=== PATIENT | female | born 1975 | race Caucasian/White ===

== ENCOUNTER 2020-03-21 07:17 | Outpatient (REF) | payer SELFPAY ==
[2020-03-21 07:36] LABS: COVID-19 Test Negative (Negative)
== END 2020-03-21 07:18 | disposition home or self-care (01) ==
LOC: HO.LAB 07:17
PROVIDERS: Visit Provider Internal Medicine
DX: Z20.828 Contact with and (suspected) exposure to other viral communicable diseases (principal)
CPT/HCPCS: 87635

== ENCOUNTER → 2020-04-11 10:33 | Outpatient (BNVA) | payer OTHER, SELFPAY | PROVIDERS: Visit Provider Physician Assistant Medical | DX: S61.512A Laceration without foreign body of left wrist, initial encounter (principal); W27.8XXA Contact with other nonpowered hand tool, initial encounter | CPT/HCPCS: 12001; 90715; 99203 ==

== ENCOUNTER → 2020-04-12 15:42 | Outpatient (BNVA) | payer OTHER, SELFPAY | PROVIDERS: Visit Provider Internal Medicine | DX: S61.512A Laceration without foreign body of left wrist, initial encounter (principal); W26.8XXA Contact with other sharp object(s), not elsewhere classified, initial encounter | CPT/HCPCS: 99214 ==

== ENCOUNTER 2020-04-16 06:23 | Outpatient (REF) | payer OTHER, SELFPAY | END 2020-04-16 06:24 | disposition home or self-care (01) | LOC: HO.LAB 06:23 | PROVIDERS: Visit Provider Internal Medicine | DX: Z20.828 Contact with and (suspected) exposure to other viral communicable diseases (principal) | CPT/HCPCS: C9803; U0003 ==

== ENCOUNTER → 2020-04-19 09:15 | Outpatient (BNVA) | payer OTHER, SELFPAY | PROVIDERS: Visit Provider Internal Medicine | DX: S61.512A Laceration without foreign body of left wrist, initial encounter (principal); X58.XXXA Exposure to other specified factors, initial encounter | CPT/HCPCS: 99212; 99213 ==

== ENCOUNTER 2022-12-25 08:18 | Emergency (ER) | payer SELFPAY ==
[2022-12-25 08:30] VITALS: BP 122/80; BP 135/78; PULSE 86; PULSE 96; RESP 18; TEMP 35.7; O2SAT 94; O2SAT 95; BMI 21.7
[2022-12-25 11:07] VITALS: BP 102/67; PULSE 101; RESP 18; TEMP 35.6; O2SAT 94
--- NOTE | 2022-12-25 13:17 | ED_ITS ---
HPI - General Adult General Chief complaint: ETOH/Substance Use Stated complaint: ETOH per EMS Time Seen by Provider: 12/25/22 08:25 Source: patient Mode of arrival: ambulatory Limitations: no limitations History of Present Illness HPI narrative: 47 ylodl female presents to the ED for alcohol on breath. patinet denies drinking, but there is alcohol on breath. Patient denies any trauma. Patient does not want detox. 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 Related Data Allergies Allergy/AdvReac Type Severity Reaction Status Date / Time No Known Allergies Allergy Unverified 02/22/20 14:57 [No Known Allergies*] Review of Systems Review of Systems: Alcohol on breath Yes all other systems are reviewed and are negative [facility] Social History Social History Alcohol intake: current Alcohol type: beer Smoked in Last 30 Days: No Use of substances other than those prescribed or required for medical reasons: No Advance Directives: No Advance Directives Information Provided: No Physical Exam ED Vital Signs: Vital Signs - 24 hr 12/25/22 08:30 12/25/22 11:07 Temperature 96.2 F L 96.0 F L Pulse Rate 86 101 H Respiratory Rate 18 18 Blood Pressure 135/78 102/67 Pulse Oximetry 94 94 Oxygen Delivery Method Room Air Room Air BMI result Body Mass Index 21.7 Const General: cooperative, healthy appearing, comfortable, no acute distress, well developed, alert, awake and Physically active Orientation/consciousness: oriented to person, oriented to place, oriented to time and patient oriented x3 HENMT Head: Yes normal to inspection, Yes No palpable skull fracture present, Yes normocephalic, Yes atraumatic and No abrasion Ears: hearing grossly normal bilaterally, external ears normal, TM's normal bilaterally, TM normal on the right, TM normal on the left, EAC's normal, mastoids normal and no periauricular adenopathy Throat: Yes posterior oropharynx normal, Yes tonsils normal and Yes uvula midline Eyes General: appearance normal, both eyes and all related structures Neck Neck: Yes normal visual inspection, Yes full ROM, Yes no lymphadenopathy, Yes no meningeal signs, Yes trachea midline, Yes supple, No anterior neck swelling and No tender Chest Chest palpation & inspection: normal inspection of the chest and normal palpation of entire chest wall Resp Effort & Inspection: normal respiratory effort and able to speak in complete sentences Auscultation: clear to auscultation bilaterally Cardio Jugular venous distension: no JVD Heart sounds: S1 normal heart sound present and S2 normal heart sound present GI Inspection: Yes normal to inspection and No abdominal wall ecchymosis Palpation (GI): Soft to palpation, not firm, nontender, no guarding and not rigid General: No CVA tenderness and Yes no CVA tenderness Back/Spine/Pelvis Back: no CVA tenderness, No CVA tenderness and No back tenderness Skin General skin exam: no rashes or lesions noted and elasticity normal Neuro General: oriented to person, oriented to place, oriented to time, patient oriented x3, gait normal, tone normal, moves all extremities, Normal light touch and pain sensation, no meningeal signs, no focal motor deficits, CN's II-XI intact bilaterally and normal sensation to monofilament Extrem General: Yes normal to inspection and Yes full ROM Psych Appearance: grossly normal, well kempt and not disheveled Medical Decision Making Medical Decision Making MDM Narrative: 47-year-old female history of alcohol abuse presents to the ED for drinking while at work. Patient denies trauma. Patient evaluated throughout ED visit. Patient is alert oriented x3. Patient does not want detox. Patient O2 saturation before discharge 96%. Differential Diagnosis Differential Diagnoses: The differential diagnosis associated with the presentation includes (Alcohol withdrawal. Alcohol abuse. susbtance abuse. DT) Admission/Observation Consideration of admission/observation: Escalation of care including admission/observation considered Independent Historian Clinical information obtained from an independent historian. History obtained from or confirmed by: EMS and Other Chronic Conditions Patient?s care impacted by: Other (Alcohol abuse) Discharge Plan Discharge Clinical Impression: Alcohol abuse Patient Disposition: Home, Self-Care Instructions: Abuse of Alcohol (DC) Additional Instructions: Please follow-up to primary care provider. Return to the ED immediately for any tremors, chest pain, shortness of breath, abdominal pain, headache, nausea, vomiting, altered mental status, any psych ideation, or any other concerning symptoms. Interventions: ED Discharge Assessment Last Done: 12/25/22 14:52 Discharge Date/Time: 12/25/22 14:53 Print Language: Surinamese
[2022-12-25 13:53] VITALS: BP 104/68; PULSE 83; RESP 16; TEMP 35.6; O2SAT 94
--- NOTE | 2022-12-25 14:52 | PC.NURSE ---
reviewed discharge paper work with pt. pt called a CAB for a ride home.
== END 2022-12-25 14:53 | disposition home or self-care (01) ==
PROVIDERS: Emergency Provider Emergency Medicine
DX: F10.10 Alcohol abuse, uncomplicated (principal); Y90.9 Presence of alcohol in blood, level not specified
CPT/HCPCS: 99284

== ENCOUNTER 2024-06-08 18:30 | Inpatient (IN) | payer MEDICAID, SELFPAY ==
--- NOTE | ~2024-06-08 | XR_ITS ---
CLINICAL HISTORY: trach aspiration 1 view chest x-ray Comparison: None Findings: Central perihilar hazy opacities in the right greater than left lung. No effusion or pneumothorax. Tracheostomy tube in expected position overlying the mid trachea. Moderate cardiomegaly. No acute fracture. IMPRESSION: 1. Central hazy perihilar opacities in the right greater than left lung. These likely correspond with ground-glass opacity seen on CT yesterday. Differential includes pulmonary edema, infection (possibly atypical) or aspiration. This document has been electronically signed by: Mak Puri MD on 06/09/2024 19:06:38
--- NOTE | ~2024-06-08 | CT_ITS ---
CLINICAL HISTORY: gi bleed, etoh CT abdomen and pelvis with and without contrast Comparison: None Findings: Ground-glass opacity in the central right lung base with a centrilobular appearance. The spleen is normal in size. Adrenal glands, kidneys, pancreas are unremarkable. Diffuse gallbladder wall thickening, which may be related to underlying liver disease. There is a stone within the gallbladder. No bowel obstruction, pneumoperitoneum, or pneumatosis. There is mild wall thickening of the right colon which may be hepatic colopathy. Diffusely lobulated liver consistent with cirrhosis. Gastroesophageal, perigastric and gastrohepatic varices are present. Varices extend into the gastric lumen.Recanalization of the umbilical vein present. Pelvic contents unremarkable. Normal appendix. Xzly-ut-yvglmuld ascites. No acute fracture. Body wall anasarca. IMPRESSION: Right colon wall thickening, which may be hepatic colopathy. Hepatic cirrhosis with varices and portal hypertension. Small to moderate ascites. Ground-glass opacity in the right lung base, which could be asymmetric pulmonary edema or atypical infection. Diffuse wall thickening of the gallbladder, with cholelithiasis. Wall thickening is a nonspecific finding which can be related to underlying liver disease. This document has been electronically signed by: Mak Puri MD on 06/09/2024 00:52:56
[2024-06-08 18:32] VITALS: BP 115/97; PULSE 122; RESP 19; TEMP 36.8; O2SAT 98; BMI 28.1
--- NOTE | 2024-06-08 18:37 | ED_ITS ---
HPI - General Adult General Chief complaint: General Medical Stated complaint: sore throat, vomiting blood Time Seen by Provider: 06/08/24 19:38 Source: patient Mode of arrival: ambulatory Limitations: no limitations History of Present Illness ED Provider: Dr. Lashawn Garner HPI narrative: Patient comes to the emergency room complaining of sore throat for several weeks. However, patient also complaining that she vomited blood today. Patient denies abdominal pain. Patient states that her knowledge she has never been diagnosed with cirrhosis. Patient admits that she drinks beers daily. It was noted that patient is icteric, patient is significant other states that she has been like this for over 2 months. Patient also complaining of chronic fatigue, shortness of breath with minimal Related Data Allergies Allergy/AdvReac Type Severity Reaction Status Date / Time No Known Allergies Allergy Verified 06/08/24 18:37 [No Known Allergies*] Review of Systems 2 Review of Systems: Constitutional : No Weight loss, No Fever, No Chills, No Night Sweats, No Fatigue, No Malaise ENT/Mouth : No Hearing loss, No Ear Pain, No Nasal Congestion, No Sinus Pain, No Hoarseness, complaining of sore throat, No Rhinorrhea, No Swallowing Difficulty Eyes: No Eye Pain, No Swelling, No Redness, No Foreign Body, No Discharge, No Vision Changes Cardiovascular : No Chest Pain, No SOB, No Dyspnea on Exertion, No Orthopnea, No Edema, No Palpitations Respiratory : No Cough, No Sputum, No Wheezing, No Smoke Exposure, No Dyspnea Gastrointestinal : Complaining of nausea and vomiting blood, No Diarrhea, No Constipation, No abdominal Pain, denies hematochezia or melena Genitourinary : no irregular bleeding, No Dysuria, No Urinary Frequency, No Hematuria, No Urinary Incontinence, No Urgency, No Flank Pain, No Urinary Flow Changes, No Hesitancy Musculoskeletal : No joint pain, No Myalgias, No Joint Swelling Skin : No Skin Lesions, No rash Neuro : No Weakness, No Numbness, No Paresthesias, No Loss of Consciousness, No Dizziness, No Headache Psych : No Anxiety/Panic, No Depression, No SI/HI/AH/VH, No Social Issues, Heme/Lymph: No Bruising, No Bleeding,No Lymphadenopathy Endocrine : No Polyuria, No Polydipsia, No Temperature Intolerance [facility] Past Medical History Medical History Alcohol abuse Social History Social History Alcohol intake: current Alcohol intake frequency: 3 or more drinks per day Alcohol type: beer Patient Tobacco Use Status: Former Tobacco user Smoked in Last 30 Days: No Use of substances other than those prescribed or required for medical reasons: No Advance Directives: No Advance Directives Information Provided: No Do you have a plan to hurt others: No Plan Nutrition Risks: No Nutritional Risk Patient : Yes Physical Exam ED Vital Signs: Vital Signs - 24 hr 06/08/24 18:32 06/08/24 20:06 06/08/24 21:38 Temperature 98.3 F 98.4 F 98.3 F Pulse Rate 122 H 107 H 97 Respiratory Rate 19 20 31 H Blood Pressure 115/97 H 109/63 99/55 L Pulse Oximetry 98 99 97 Oxygen Delivery Method Room Air Room Air Room Air 06/08/24 21:44 06/08/24 22:03 06/09/24 00:44 Temperature 98.3 F 98.6 F 98.1 F Pulse Rate 97 103 H 97 Respiratory Rate 15 15 14 Blood Pressure 95/55 L 115/67 122/81 Pulse Oximetry 97 Oxygen Delivery Method Room Air 06/09/24 00:44 06/09/24 01:22 06/09/24 01:39 Temperature 98.5 F 98 F 98.6 F Pulse Rate 99 100 96 Respiratory Rate 15 18 20 Blood Pressure 106/79 148/91 H 129/75 Pulse Oximetry Oxygen Delivery Method 06/09/24 01:40 Temperature 98.6 F Pulse Rate 96 Respiratory Rate 20 Blood Pressure 129/75 Pulse Oximetry Oxygen Delivery Method BMI result Body Mass Index 28.1 Const Other: Appearance: Alert. Oriented X3. No acute distress. Eyes: Pupils equal, round and reactive to light. Icteric sclerae ENT: Pharynx normal. Neck: Normal inspection. Neck supple. No lymph nodes noted. No crepitus CVS: Normal heart rate and rhythm. Pulses normal. Normal S1 and S2 Respiratory: No respiratory distress. Breath sounds normal. No Wheezing. No rales Abdomen: Soft, nondistended, palpable liver edge in the right lower quadrant, no rebound or guarding Skin: Skin warm and dry. Diffusely jaundiced skin color. Normal skin turgor. Extremities: No lower extremity edema. No Lacerations. No Rash Neuro: Oriented X 3. No motor deficit. No sensory deficit. Moving all extremities. No slurred speech. CN 2 through 12 grossly intact Psych: calm, cooperative, normal affect Course Course Course Narrative: RME: 48-year-old female presents to ED for vomiting blood NSAIDs sore throat 4 weeks. Patient has icterus eyes and jaundice skin. Dry blood in oral cavity. Patient states history of alcohol daily drinking. Due to these physical findings speak to charge was ever any to bring patient to the ED immediately. Labs ordered. Abdomen distended. Medications Administered Generic Name Dose Route Start Last Admin Trade Name Freq PRN Reason Stop Dose Admin Octreotide Acetate 500 mcg/ 501 mls @ 50.1 mls/hr 06/08/24 20:30 06/09/24 06:24 Sodium Chloride IVCONT 50 mcg/hr .Q10H ANNEMARIE 50.1 mls/hr Administration 50 MCG/HR Pantoprazole Sodium 40 mg 06/09/24 06:30 06/09/24 06:24 Pantoprazole Sodium 40 Mg/10 Ml Vial IVPUSH 40 mg BID@0630,1630 ANNEMARIE Administration Discontinued Medications Generic Name Dose Route Start Last Admin Trade Name Freq PRN Reason Stop Dose Admin Ceftriaxone Sodium 1 gm 06/08/24 20:22 06/08/24 20:48 Ceftriaxone Sodium 1 Gm Vial IVPUSH 06/08/24 20:23 1 gm ONCE ONE Administration Phytonadione 10 mg/ Sodium 51 mls @ 51 mls/hr 06/08/24 20:45 06/09/24 00:37 Chloride IV 06/08/24 21:44 Infused ONCE ONE Infusion Thiamine HCl 200 mg/ Sodium 102 mls @ 204 mls/hr 06/09/24 02:18 06/09/24 05:35 Chloride IV 06/09/24 02:47 Infused ONCE ONE Infusion Iohexol 85 ml 06/09/24 00:04 06/09/24 00:04 Iohexol 350 Mg/Ml 100 Ml Infus..Btl IV 06/09/24 00:05 85 ml ONCE ONE Administration Octreotide Acetate 50 mcg 06/08/24 20:22 06/08/24 20:48 Octreotide Acetate 100 Mcg/Ml Ampul IVPUSH 06/08/24 20:23 50 mcg ONCE ONE Administration Ondansetron HCl 4 mg 06/08/24 20:27 06/08/24 20:48 Ondansetron Hcl 4 Mg/2 Ml Vial IVPUSH 06/08/24 20:28 4 mg ONCE ONE Administration Pantoprazole Sodium 40 mg 06/08/24 19:07 06/08/24 19:53 Pantoprazole Sodium 40 Mg/10 Ml Vial IVPUSH 06/08/24 19:08 40 mg ONCE ONE Administration Pantoprazole Sodium 40 mg 06/08/24 20:22 06/08/24 20:48 Pantoprazole Sodium 40 Mg/10 Ml Vial IVPUSH 06/08/24 20:23 40 mg ONCE ONE Administration Phenobarbital Sodium 164 mg 06/08/24 22:30 06/09/24 00:23 Phenobarbital Sodium 130 Mg/Ml Im Once IM 06/08/24 22:31 164 mg ONCE ONE Administration Protocol Phenobarbital Sodium 123 mg 06/09/24 00:30 06/09/24 05:30 Phenobarbital Sodium 130 Mg/Ml Vial Im Q3hx2 IM 06/09/24 03:31 123 mg Q3H ANNEMARIE Administration Protocol Medical Decision Making Medical Decision Making MDM Narrative: Patient is anemic. Patient's hemoglobin is 5.8, hematocrit 20.6 I discussed with the patient that this is likely the cause of patient's anemic symptoms. Anemia likely secondary from variceal bleeding. At this time, patient has no active vomiting. Vitals stable, blood pressure 115/97 I discussed with the patient the risks versus benefits of a blood transfusion, patient agreeable to proceed. Consent signed Viscous with the patient that tomorrow she will likely need an endoscopy and a colonoscopy Gastric occult blood is positive CT scan shows cirrhosis. Patient received blood transfusion, Protonix, octreotide push and drip and vitamin K. Patient's INR is significantly elevated 3.0, patient not on blood thinners ETOH level positive. Patient admits to drinking alcohol. Patient denies to drug abuse. Patient never been diagnosed with hepatitis I discussed the patient with Dr. Lyman, patient being admitted Differential Diagnosis Differential Diagnoses: The differential diagnosis associated with the presentation includes (Hepatitis, ascending, changes, choledocholithiasis, there were failure, cirrhosis) Admission/Observation Consideration of admission/observation: Escalation of care including admission/observation considered Consult Healthcare Provider Management of the patient was discussed with: Hospitalist Lab Data [facility] Lab Attestation statement: I reviewed the patient's lab results. 06/09/24 04:15 06/09/24 04:15 Labs: Lab Results 06/08/24 06/08/24 06/08/24 Range/Units 19:20 20:41 21:42 WBC 16.0 H (4.8-10.8) X10*3/uL RBC 2.37 L (4.20-5.50) X10*6/uL Hgb 5.8 L* (12.0-16.0) g/dl Hct 20.6 L* (37.0-47.0) % MCV 86.9 (80.0-98.0) fL MCH 24.5 L (27.0-33.0) pg MCHC 28.2 L (31.0-35.0) g/dl RDW 23.0 H (11.0-16.0) % Plt Count 59 L (160-400) X10*3/uL MPV 9.9 (9.4-12.3) fL Immature Gran % (Auto) 0.5 H (0.0-0.4) % Neut % (Auto) 82.3 H (45-73) % Lymph % (Auto) 11.7 L (20-40) % [place] % (Auto) 4.7 (2-11) % Eos % (Auto) 0.2 (0-4) % Baso % (Auto) 0.6 (0-2) % Lymph # (Auto) 1.9 (1.2-4.9) X10*3/uL [place] # (Auto) 0.8 (0.1-1.2) X10*3/uL Eos # (Auto) 0.0 (0.0-0.4) X10*3/uL Baso # (Auto) 0.1 (0.0-0.2) X10*3/uL Abs Immat Gran (auto) 0.08 H (0.00-0.03) X10*3/uL Absolute Neuts (auto) 13.2 H (2.0-8.3) x10*3/uL Absolute Nucleated RBC 0.000 (0.0-0.012) X10*3/uL Nucleated RBC % (auto) 0.0 (0.0-0.2) /100WBC PT 36.1 H (10.9-12.4) SEC INR 3.1 H (0.9-1.1) APTT 47.1 H (26.0-36.8) SEC Sodium 136 (135-145) mmol/L Potassium 4.7 (3.3-5.1) mmol/L Chloride 109 H (96-108) mmol/L Carbon Dioxide 16 L (22-29) mmol/L Anion Gap 16 (12-20) BUN 17 H (9-16) mg/dL Creatinine 0.74 (0.5-1.4) mg/dL Estim Creat Clear Calc 67.1 Estimated GFR > 60 Random Glucose 95 (60-115) mg/dL Calcium 7.2 L (8.4-10.2) mg/dL Total Bilirubin 6.6 H (0.0-1.0) mg/dL Direct Bilirubin 4.2 H (0.0-0.5) mg/dL AST 85 H (5-31) U/L ALT 22 (0-31) U/L Alkaline Phosphatase 112 (39-117) U/L Ammonia 59 H (13-55) umol/L Total Protein 5.7 L (6.5-8.0) g/dL Albumin 1.8 L (3.5-5.0) g/dL Lipase 23 (8-78) U/L Urine Color Urine Appearance Urine pH (5.0-9.0) Ur Specific Orchard (1.005-1.025) Urine Protein (Neg-Trace) mg/dL Urine Glucose (UA) (Negative) mg/dL Urine Ketones (Negative) mg/dL Urine Blood (Negative) Urine Nitrite (Negative) Ur Leukocyte Esterase (Negative) Urine RBC (0-2) /HPF Urine WBC (0-5) /HPF Ur Squamous Epith Cells (0-2) /HPF Urine Bacteria (None Seen) Hyaline Casts (0-2) /LPF Granular Casts Gastric Occult Blood POSITIVE H (NEG) Ethyl Alcohol 133 mg/dL Influenza Type A (PCR) NEGATIVE (Negative) Influenza Type B (PCR) NEGATIVE (Negative) RSV RNA Qual (PCR) NEGATIVE (Negative) SARS-CoV-2 RNA (RT-PCR) NEGATIVE (Negative) S. pyogenes GrpA CORIN Negative (Negative) Blood Type A Positive Antibody Screen NEGATIVE Crossmatch See Detail 06/09/24 Range/Units 01:12 WBC (4.8-10.8) X10*3/uL RBC (4.20-5.50) X10*6/uL Hgb (12.0-16.0) g/dl Hct (37.0-47.0) % MCV (80.0-98.0) fL MCH (27.0-33.0) pg MCHC (31.0-35.0) g/dl RDW (11.0-16.0) % Plt Count (160-400) X10*3/uL MPV (9.4-12.3) fL Immature Gran % (Auto) (0.0-0.4) % Neut % (Auto) (45-73) % Lymph % (Auto) (20-40) % [place] % (Auto) (2-11) % Eos % (Auto) (0-4) % Baso % (Auto) (0-2) % Lymph # (Auto) (1.2-4.9) X10*3/uL [place] # (Auto) (0.1-1.2) X10*3/uL Eos # (Auto) (0.0-0.4) X10*3/uL Baso # (Auto) (0.0-0.2) X10*3/uL Abs Immat Gran (auto) (0.00-0.03) X10*3/uL Absolute Neuts (auto) (2.0-8.3) x10*3/uL Absolute Nucleated RBC (0.0-0.012) X10*3/uL Nucleated RBC % (auto) (0.0-0.2) /100WBC PT (10.9-12.4) SEC INR (0.9-1.1) APTT (26.0-36.8) SEC Sodium (135-145) mmol/L Potassium (3.3-5.1) mmol/L Chloride (96-108) mmol/L Carbon Dioxide (22-29) mmol/L Anion Gap (12-20) BUN (9-16) mg/dL Creatinine (0.5-1.4) mg/dL Estim Creat Clear Calc Estimated GFR Random Glucose (60-115) mg/dL Calcium (8.4-10.2) mg/dL Total Bilirubin (0.0-1.0) mg/dL Direct Bilirubin (0.0-0.5) mg/dL AST (5-31) U/L ALT (0-31) U/L Alkaline Phosphatase (39-117) U/L Ammonia (13-55) umol/L Total Protein (6.5-8.0) g/dL Albumin (3.5-5.0) g/dL Lipase (8-78) U/L Urine Color Dark Yellow Urine Appearance Cloudy Urine pH 5.0 (5.0-9.0) Ur Specific [place]chard >= 1.030 H (1.005-1.025) Urine Protein Negative (Neg-Trace) mg/dL Urine Glucose (UA) Negative (Negative) mg/dL Urine Ketones Trace (Negative) mg/dL Urine Blood Negative (Negative) Urine Nitrite Positive H (Negative) Ur Leukocyte Esterase Trace H (Negative) Urine RBC 3-5 H (0-2) /HPF Urine WBC 0-5 (0-5) /HPF Ur Squamous Epith Cells 6-10 (0-2) /HPF Urine Bacteria 3+ (None Seen) Hyaline Casts >20 (0-2) /LPF Granular Casts Present Gastric Occult Blood (NEG) Ethyl Alcohol mg/dL Influenza Type A (PCR) (Negative) Influenza Type B (PCR) (Negative) RSV RNA Qual (PCR) (Negative) SARS-CoV-2 RNA (RT-PCR) (Negative) S. pyogenes GrpA CORIN (Negative) Blood Type Antibody Screen Crossmatch Independent Interpretation I performed an independent interpretation of an: CT Scan Radiology Impression Discussion of test interpretation with radiology: I have reviewed the radiologist's reading. Radiologist Impression: Ground-glass opacity in the central right lung base with a centrilobular appearance. The spleen is normal in size. Adrenal glands, kidneys, pancreas are unremarkable. Diffuse gallbladder wall thickening, which may be related to underlying liver disease. There is a stone within the gallbladder. No bowel obstruction, pneumoperitoneum, or pneumatosis. There is mild wall thickening of the right colon which may be hepatic colopathy. Diffusely lobulated liver consistent with cirrhosis. Gastroesophageal, perigastric and gastrohepatic varices are present. Varices extend into the gastric lumen.Recanalization of the umbilical vein present. Pelvic contents unremarkable. Normal appendix. Gvrx-my-izkkoark ascites. No acute fracture. Body wall anasarca. IMPRESSION: Right colon wall thickening, which may be hepatic colopathy. Hepatic cirrhosis with varices and portal hypertension. Small to moderate ascites. Ground-glass opacity in the right lung base, which could be asymmetric pulmonary edema or atypical infection. Diffuse wall thickening of the gallbladder, with cholelithiasis. Wall thickening is a nonspecific finding which can be related to underlying liver disease. Critical Care Time Critical Care Time Critical Care Time: Yes Total Critical Care Time: 75 Attestation: I have personally provided critical care time. Time includes review of lab data, radiology results, discussion with consultants, and monitoring for potential decompensation. Intervention performed as documented. Discharge Plan Discharge Clinical Impression: Cirrhosis, Alcohol abuse, Anemia, Acute GI bleeding Patient Disposition: Admitted As Inpatient Interventions: Admission Worksheet (ED) Last Done: 06/09/24 07:04
[2024-06-08 19:27] LABS: MANUAL DIFF FLAG NO
[2024-06-08 19:29] LABS: Basophils Absolute Auto 0.1 X10*3/uL (0.0-0.2); Basophils Percent Auto 0.6 % (0-2); Eosinophils Percent Auto 0.2 % (0-4); Imm Gran Abs Auto 0.08 X10*3/uL (0.00-0.03); Imm Gran Pct Auto 0.5 % (0.0-0.4); Lymphocytes Absolute Auto 1.9 X10*3/uL (1.2-4.9); Lymphocytes Percent Auto 11.7 % (20-40); Mean Corpuscular HGB Conc 28.2 g/dl (31.0-35.0); Mean Corpuscular Hemoglobin 24.5 pg (27.0-33.0); Mean Corpuscular Volume 86.9 fL (80.0-98.0); Mean Platelet Volume 9.9 fL (9.4-12.3); Monocytes Absolute Auto 0.8 X10*3/uL (0.1-1.2); Monocytes Percent Auto 4.7 % (2-11); Neutrophils Absolute Auto 13.2 x10*3/uL (2.0-8.3); Neutrophils Percent Auto 82.3 % (45-73); Red Blood Count 2.37 X10*6/uL (4.20-5.50)
[2024-06-08 19:33] LABS: Hematocrit 20.6 % (37.0-47.0); Platelet Count 59 X10*3/uL (160-400)
[2024-06-08 19:35] LABS: INTERNATIONAL NORM RATIO 3.1 (0.9-1.1); Prothrombin Time 36.1 SEC (10.9-12.4)
[2024-06-08 19:37] LABS: IDNOW Serial# 08D9AD1C; Partial Thromboplastin Time 47.1 SEC (26.0-36.8); Strep A Nucleic Acid Negative (Negative)
[2024-06-08 19:38] LABS: Hemoglobin 5.8 g/dl (12.0-16.0)
[2024-06-08 19:44] LABS: Alanine Aminotransferase 22 U/L (0-31); Albumin Level 1.8 g/dL (3.5-5.0); Alkaline Phosphatase 112 U/L (39-117); Anion Gap 16 (12-20); Aspartate Amino Transferase 85 U/L (5-31); Bilirubin Total 6.6 mg/dL (0.0-1.0); Blood Urea Nitrogen 17 mg/dL (9-16); Calcium 7.2 mg/dL (8.4-10.2); Carbon Dioxide 16 mmol/L (22-29); Chloride 109 mmol/L (96-108); Creatinine Clr Calc Pharmacy 67.1; Estimated Glomerular Filt Rate > 60; Ethanol 133 mg/dL; Glucose Random 95 mg/dL (60-115); Lipase 23 U/L (8-78); Potassium 4.7 mmol/L (3.3-5.1); Sodium 136 mmol/L (135-145); Total Protein 5.7 g/dL (6.5-8.0)
[2024-06-08] MEDS: Pantoprazole Sodium 40 MG/10 ML VIAL IVPUSH ×2 (19:53→20:48)
[2024-06-08 20:06] VITALS: BP 109/63; PULSE 107; RESP 20; TEMP 36.9; O2SAT 99
[2024-06-08 20:06] LABS: Influenza A PCR NEGATIVE (Negative); Influenza B PCR NEGATIVE (Negative); Resp Syncy Virus RNA Qual PCR NEGATIVE (Negative); SARS COV2 PCR INHOUSE NEGATIVE (Negative)
[2024-06-08] MEDS: cefTRIAXone sodium 1 GM VIAL IVPUSH (20:48)
[2024-06-08] MEDS: ondansetron HCL 4 MG/2 ML VIAL IVPUSH (20:48)
[2024-06-08] MEDS: Octreotide Acetate 100 MCG/ML AMPUL 50 MCG IVPUSH (20:48)
[2024-06-08 20:54] LABS: Bilirubin Direct 4.2 mg/dL (0.0-0.5)
--- NOTE | 2024-06-08 20:54 | PC.NURSE ---
pt x1 episode of rust-colored emesis, approx. 250 mL. MD aware, testing ordered
[2024-06-08 20:58] LABS: Ammonia 59 umol/L (13-55)
[2024-06-08] MEDS: Phytonadione (Vit K1) 10 MG in 0.9 % Sodium Chloride 50 ML 51 MG IV (21:03)
[2024-06-08] MEDS: Octreotide Acetate 500 MCG in 0.9 % Sodium Chloride 500 ML 50.1 MCG IVCONT (21:05)
[2024-06-08 21:38] VITALS: BP 99/55; PULSE 97; RESP 31; TEMP 36.8; O2SAT 97
[2024-06-08 21:44] VITALS: BP 95/55; PULSE 97; RESP 15; TEMP 36.8
[2024-06-08 21:53] LABS: GASOB Int Neg Ctl Valid YES; GASOB Int Pos Ctl Valid YES; Occult Blood Gastric POSITIVE (NEG)
[2024-06-08 21:54] LABS: GASOB Lot 20632
[2024-06-08 22:03] VITALS: BP 115/67; PULSE 103; RESP 15; TEMP 37
[2024-06-09] VITALS (27 sets, daily range): BP systolic 91–148; BP diastolic 67–91; PULSE 84–101; RESP 2–24; TEMP 35–37.4; O2SAT 93–100
--- NOTE | 2024-06-09 | ECG_ITS ---
Test Reason : hyperkalemia Blood Pressure : / mmHG Vent. Rate : 089 BPM Atrial Rate : 089 BPM P-R Int : 144 ms QRS Dur : 076 ms QT Int : 396 ms P-R-T Axes : 019 -15 017 degrees QTc Int : 481 ms Normal sinus rhythm Prolonged QT Abnormal ECG No previous ECGs available Referred By: Dmityr Escalante Electronically Signed By:AUTUMN MADISON MD
[2024-06-09] MEDS: iohexoL 350 MG/ML 100 ML INFUS..BTL 85 ML IV (00:04)
[2024-06-09] MEDS: PHENobarbitaL sodium 130 MG/ML IM ONCE 164 MG IM (00:23)
[2024-06-09 01:18] LABS: Appearance Urine Cloudy; Color Urine Dark Yellow; Glucose Urine UA Negative (Negative); Leukocyte Esterase Urine Trace (Negative); Nitrite Urine Positive (Negative); Specific Gravity - Urine >= 1.030 (1.005-1.025); UMIC TRIGGER UA YES; Urine Blood Negative (Negative); Urine Ketones Trace mg/dL (Negative); Urine Protein Negative (Neg-Trace)
[2024-06-09 01:30] LABS: Bacteria Urine 3+ (None Seen); Granular Casts Urine Present; Hyaline Casts Urine >20 /LPF (0-2); WBC Urine 0-5 /HPF (0-5)
[2024-06-09] MEDS: PHENobarbitaL sodium 130 MG/ML VIAL IM Q3Hx2 123 MG IM ×2 (02:31→05:30)
[2024-06-09] MEDS: Thiamine HCL 200 MG in 0.9 % Sodium Chloride 100 ML 204 MG IV (04:23)
[2024-06-09 04:59] LABS: MANUAL DIFF FLAG NO
[2024-06-09 05:00] LABS: Basophils Absolute Auto 0.1 X10*3/uL (0.0-0.2); Basophils Percent Auto 0.5 % (0-2); Eosinophils Absolute Auto 0.1 X10*3/uL (0.0-0.4); Eosinophils Percent Auto 0.5 % (0-4); Hematocrit 25.1 % (37.0-47.0); Imm Gran Abs Auto 0.05 X10*3/uL (0.00-0.03); Imm Gran Pct Auto 0.5 % (0.0-0.4); Lymphocytes Absolute Auto 2.3 X10*3/uL (1.2-4.9); Lymphocytes Percent Auto 20.8 % (20-40); Mean Corpuscular HGB Conc 31.9 g/dl (31.0-35.0); Mean Corpuscular Hemoglobin 28.8 pg (27.0-33.0); Mean Corpuscular Volume 90.3 fL (80.0-98.0); Mean Platelet Volume 9.8 fL (9.4-12.3); Monocytes Absolute Auto 0.6 X10*3/uL (0.1-1.2); Monocytes Percent Auto 5.2 % (2-11); NRBC Pct Auto 0.3 /100WBC (0.0-0.2); Neutrophils Absolute Auto 7.9 x10*3/uL (2.0-8.3); Neutrophils Percent Auto 72.5 % (45-73); Red Blood Count 2.78 X10*6/uL (4.20-5.50); Red Cell Distribution Width 19.2 % (11.0-16.0); White Blood Count 10.8 X10*3/uL (4.8-10.8)
[2024-06-09 05:01] LABS: Platelet Count 42 X10*3/uL (160-400)
--- NOTE | 2024-06-09 05:17 | P.HPHOSP_ITS ---
History of Present Illness Date of Service: 06/09/24 <ADELE Monge Last Filed: 06/09/24 05:43> Attending physician on admission: Shukri Lyman <ADELE Monge Last Filed: 06/09/24 05:43> Chief Complaint: hematemesis, SOB, fatigue <ADELE Monge Last Filed: 06/09/24 05:43> Patient is a 48-year-old female past medical history significant for alcohol abuse, who presented to the ED last night due to sore throat, hematemesis, fatigue and shortness of breath. She reports 1 episode of hematemesis the day prior followed by multiple episodes yesterday. No melena or rectal bleeding. She drinks about 6-8 beers per day for many years. Her father has a history of alcohol cirrhosis. She denies any cough, abdominal pain, fever or chills. She does complain of a sore throat she reports has improved since arriving here. < ADELE Monge Last Filed: 06/09/24 05:43> Review of Systems 2 Constitutional: Constitutional: Denies body ache(s), Denies chills, Reports fatigue, Denies fever(s) and Denies headache(s) <ADELE Monge Last Filed: 06/09/24 05:43> Eyes: Eyes: Denies change in vision <ADELE Monge Last Filed: 06/09/24 05:43> Comments: scleral icterus <ADELE Monge Last Filed: 06/09/24 05:43> ENT: Reports dry mouth, Denies headache(s), Denies nasal congestion, Denies nasal discharge and Reports sore throat <ADELE Monge Last Filed: 06/09/24 05:43> Cardiovascular: Cardiovascular: Denies chest pain, Denies rapid heart rate, Denies lightheadedness and Reports dyspnea <ADELE Monge Last Filed: 06/09/24 05:43> Respiratory: Respiratory: Denies chest congestion, Denies cough, Reports dyspnea and Denies wheezing <MARIBEL Monge [facility] Last Filed: 06/09/24 05:43> Gastrointestinal: Gastrointestinal: Denies abdominal pain, Denies melena, Denies hematochezia, Denies dyspepsia, Denies heartburn, Denies diarrhea, Reports nausea, Reports vomiting and Reports hematemesis <ADARSH Monge [facility] Last Filed: 06/09/24 05:43> Genitourinary: Genitourinary: Denies dysuria and Denies urinary urgency < ADARSH Monge [facility] Last Filed: 06/09/24 05:43> Musculoskeletal: Musculoskeletal: Denies myalgias <ADARSH Monge [facility] Last Filed: 06/09/24 05:43> Integumentary/Breasts: Skin/Breast: Denies rash <ADARSH Monge [facility] Last Filed: 06/09/24 05:43> Neurologic: Denies confusion, Denies headache(s) and Denies memory loss < ADARSH Monge [facility] Last Filed: 06/09/24 05:43> Psychiatric: Psychiatric: Denies confusion and Denies memory loss < ADARSH Monge [facility] Last Filed: 06/09/24 05:43> Endocrine: Endocrine: Reports fatigue <ADARSH Monge [facility] Last Filed: 06/09/24 05:43> Hematologic/Lymphatic: Hematologic/Lymphatic: Denies easy bruising < ADARSH Monge [facility] Last Filed: 06/09/24 05:43> Allergic/Immunologic: Allergic/Immunologic: Denies wheezing <ADARSH Monge [facility] Last Filed: 06/09/24 05:43> [facility] Medical History: Medical History Alcohol abuse <MARIBEL Monge [facility] Last Filed: 06/09/24 05:43> Functional capacity: independent ambulation <MARIBEL Monge [facility] Last Filed: 06/09/24 05:43> Social History: Social History Alcohol intake: current Alcohol intake frequency: 3 or more drinks per day Alcohol type: beer Patient Tobacco Use Status: Former Tobacco user Smoked in Last 30 Days: No Use of substances other than those prescribed or required for medical reasons: No Advance Directives: No Advance Directives Information Provided: No Do you have a plan to hurt others: No Plan Nutrition Risks: No Nutritional Risk Patient : Yes <Connie Amato PA-C - Last Filed: 06/09/24 05:43> Narrative: Drink 6-8 beers per day, no smoking or drug use <Connie Amato PA-C - Last Filed: 06/09/24 05:43> Meds Allergies/Adverse reactions: Allergies Allergy/AdvReac Type Severity Reaction Status Date / Time No Known Allergies Allergy Verified 06/08/24 18:37 [No Known Allergies*] <Connie Amato PA-C - Last Filed: 06/09/24 05:43> Active Medications: Current Medications Acetaminophen (Acetaminophen 325 Mg Tablet) 650 mg PO Q6H PRN PRN Reason: Pain, Mild 1-3,fever,headache Calcium Carbonate (Calcium Carbonate 750 Mg Tab.Chew) 750 mg PO Q4H PRN PRN Reason: Heartburn Ceftriaxone Sodium (Ceftriaxone Sodium 1 Gm Vial) 1 gm IVPUSH Q24H [facility] Octreotide Acetate 500 mcg/ (Sodium Chloride) 501 mls @ 50.1 mls/hr IVCONT .Q10H [facility] Last Admin: 06/08/24 21:05 Dose: 50 mcg/hr, 50.1 mls/hr Magnesium Hydroxide (Milk Of Magnesia 30 Ml Oral.Susp) 30 ml PO DAILY PRN PRN Reason: Constipation Melatonin (Melatonin 3 Mg Tablet) 6 mg PO BEDTIME PRN PRN Reason: Insomnia Ondansetron HCl (Ondansetron Hcl 4 Mg/2 Ml Vial) 4 mg IVPUSH Q8H PRN PRN Reason: Nausea and Vomiting Pantoprazole Sodium (Pantoprazole Sodium 40 Mg/10 Ml Vial) 40 mg IVPUSH BID@0630,1630 [facility] Pharmacy Consult (Consult Rx Etoh Phenob Im/Po) 1 each MISCELLANE ONCE PRN; Protocol PRN Reason: Consult order Phenobarbital (Phenobarbital 30 Mg Tablet) 30 mg PO BID [facility]; Protocol Stop: 06/10/24 21:01 Phenobarbital (Phenobarbital 15 Mg Tablet) 15 mg PO BID [facility]; Protocol Stop: 06/12/24 21:01 Phenobarbital (Phenobarbital 15 Mg Tablet) 15 mg PO DAILY [facility]; Protocol Stop: 06/14/24 09:01 Sodium Chloride (0.9 % Sodium Chloride Flush 3 Ml Syringe) 3 ml IVFLUSH QSHIFT [facility] <Connie Amato PA-C - Last Filed: 06/09/24 05:43> Physical Exam 2 Vital Signs and Narrative: Vital Signs: Last Vital Signs Temp 99 F 06/09/24 04:55 Pulse 98 06/09/24 04:55 Resp 16 06/09/24 04:55 BP 123/71 06/09/24 04:55 Pulse Ox 95 06/09/24 04:00 O2 Del Method Room Air 06/09/24 04:00 BMI result Body Mass Index 28.1 <ADELE Monge Last Filed: 06/09/24 05:43> General: AOx3, no acute distress HEENT: no exudates on tonsils, scleral icterus Resp: fine crackles bilateral lower lungs CVS: S1, S2, RRR GI: +BS, NT, mild distention Skin: Warm, dry Extremities: No LE edema Psych: Appropriate affect <Connie Amato PA-C - Last Filed: 06/09/24 05:43> Const: General: No confusion <ADELE Monge Last Filed: 06/09/24 05:43> Orientation/consciousness: No confusion <Connie Amato PA-C - Last Filed: 06/09/24 05:43> Neuro: General: No confusion <Connie Amato PA-C - Last Filed: 06/09/24 05:43> Results Labs CBC and Chem 7: 06/09/24 04:15 06/09/24 04:15 <ADELE Monge Last Filed: 06/09/24 05:43> Labs: Laboratory Results - last 24 hr 06/08/24 06/08/24 06/08/24 19:20 20:41 21:42 MCV 86.9 MCH 24.5 L MCHC 28.2 L RDW 23.0 H Plt Count 59 L MPV 9.9 Immature Gran % (Auto) 0.5 H Neut % (Auto) 82.3 H Lymph % (Auto) 11.7 L [place] % (Auto) 4.7 Eos % (Auto) 0.2 Baso % (Auto) 0.6 Lymph # (Auto) 1.9 [place] # (Auto) 0.8 Eos # (Auto) 0.0 Baso # (Auto) 0.1 Abs Immat Gran (auto) 0.08 H Absolute Neuts (auto) 13.2 H Absolute Nucleated RBC 0.000 Nucleated RBC % (auto) 0.0 PT 36.1 H INR 3.1 H APTT 47.1 H Anion Gap 16 Estim Creat Clear Calc 67.1 Estimated GFR > 60 Random Glucose 95 Calcium 7.2 L Total Bilirubin 6.6 H Direct Bilirubin 4.2 H AST 85 H ALT 22 Alkaline Phosphatase 112 Ammonia 59 H Total Protein 5.7 L Albumin 1.8 L Lipase 23 Urine Color Urine Appearance Urine pH Ur Specific [place] Urine Protein Urine Glucose (UA) Urine Ketones Urine Blood Urine Nitrite Ur Leukocyte Esterase Urine RBC Urine WBC Ur Squamous Epith Cells Urine Bacteria Hyaline Casts Granular Casts Gastric Occult Blood POSITIVE H Ethyl Alcohol 133 Influenza Type A (PCR) NEGATIVE Influenza Type B (PCR) NEGATIVE RSV RNA Qual (PCR) NEGATIVE SARS-CoV-2 RNA (RT-PCR) NEGATIVE S. pyogenes GrpA CORIN Negative Blood Type A Positive Antibody Screen NEGATIVE Crossmatch See Detail 06/09/24 06/09/24 01:12 04:15 MCV 90.3 MCH 28.8 MCHC 31.9 RDW 19.2 H Plt Count 42 L D MPV 9.8 Immature Gran % (Auto) 0.5 H Neut % (Auto) 72.5 Lymph % (Auto) 20.8 [place] % (Auto) 5.2 Eos % (Auto) 0.5 Baso % (Auto) 0.5 Lymph # (Auto) 2.3 [place] # (Auto) 0.6 Eos # (Auto) 0.1 Baso # (Auto) 0.1 Abs Immat Gran (auto) 0.05 H Absolute Neuts (auto) 7.9 Absolute Nucleated RBC 0.030 H Nucleated RBC % (auto) 0.3 H PT INR APTT Anion Gap Estim Creat Clear Calc Estimated GFR Random Glucose Calcium Total Bilirubin Direct Bilirubin AST ALT Alkaline Phosphatase Ammonia Total Protein Albumin Lipase Urine Color Dark Yellow Urine Appearance Cloudy Urine pH 5.0 Ur Specific [place] >= 1.030 H Urine Protein Negative Urine Glucose (UA) Negative Urine Ketones Trace Urine Blood Negative Urine Nitrite Positive H Ur Leukocyte Esterase Trace H Urine RBC 3-5 H Urine WBC 0-5 Ur Squamous Epith Cells 6-10 Urine Bacteria 3+ Hyaline Casts >20 Granular Casts Present Gastric Occult Blood Ethyl Alcohol Influenza Type A (PCR) Influenza Type B (PCR) RSV RNA Qual (PCR) SARS-CoV-2 RNA (RT-PCR) S. pyogenes GrpA CORIN Blood Type Antibody Screen Crossmatch <Connie Amato PA-C - Last Filed: 06/09/24 05:43> Assessment and Plan (1) Acute GI bleeding: Status: Acute <Connie Amato PA-C - Last Filed: 06/09/24 05:43> (2) ABLA (acute blood loss anemia): Status: Acute <Connie Amato PA-C - Last Filed: 06/09/24 05:43> (3) Cirrhosis: Status: Acute <Connie Amato PA-C - Last Filed: 06/09/24 05:43> (4) Ascites due to alcoholic cirrhosis: Status: Acute <Connie Amato PA-C - Last Filed: 06/09/24 05:43> (5) Alcohol abuse: Status: Acute <Connie Amato PA-C - Last Filed: 06/09/24 05:43> Patient is a 48-year-old female past medical history significant for alcohol abuse, who presented to the ED last night due to sore throat, hematemesis, fatigue and shortness of breath. CT scan significant for cirrhosis with varices, portal hypertension, mild to moderate ascites, right colon wall thickening ?colopathy. Acute GI bleed, acute blood loss anemia - hgb 5.8 hct 20.6 on arrival, now 8.0/25.1 - CT with new cirrhosis, portal HTN, varices, and ?colopathy, mild to moderate ascites, atyical ?PNA vs pulmonary edema - gastric occult blood + - given 3U PRBC, 1 still transfusing, H+H improving - given vit K in ED - started on octreotide in ED, continue - continue protonix 40mg BID - ceftriaxone for SBP prophylaxis - NPO - GI consult new dx cirrhosis with ascites - pt not having any abd pain - ceftriaxone for SBP prophy - GI consult - etoh cessation discussed - AST 85, ALT 22, ALP 112 - ammonia 59, no confusion etoh abuse - etoh level 133 on arrival - monitor CIWA - phenobarb protocol - on protonix - given thiamine in ED, continue daily - etoh cessation discussed - addiction med consult ?PNA on CT - no cough, leukocytosis, or fever - on ceftriaxone for SBP prophy, consider adding coverage for aspiration PNA if new sx develop full code VTE prophy: pneumoboots, anticoagulant contraindicated due to bleeding Patient with acute GI bleed and acute blood loss anemia secondary to cirrhosis with varices, requiring admission for at least 2 midnight stay for further treatment and workup. <Connie Amato PA-C - Last Filed: 06/09/24 05:43> Patient is a 48-year-old female past medical history significant for alcohol abuse, who presented to the ED last night due to sore throat, hematemesis, fatigue and shortness of breath. CT scan significant for cirrhosis with varices, portal hypertension, mild to moderate ascites, right colon wall thickening ?colopathy. Acute GI bleed, acute blood loss anemia - hgb 5.8 hct 20.6 on arrival, now 8.0/25.1 - CT with new cirrhosis, portal HTN, varices, and ?colopathy, mild to moderate ascites, atyical ?PNA vs pulmonary edema - gastric occult blood + - given 3U PRBC, 1 still transfusing, H+H improving - given vit K in ED - started on octreotide in ED, continue - continue protonix 40mg BID - ceftriaxone for SBP prophylaxis - NPO - GI consult new dx cirrhosis with ascites - pt not having any abd pain - ceftriaxone for SBP prophy - GI consult - etoh cessation discussed - AST 85, ALT 22, ALP 112 - ammonia 59, no confusion etoh abuse - etoh level 133 on arrival - monitor CIWA - phenobarb protocol - on protonix - given thiamine in ED, continue daily - etoh cessation discussed - addiction med consult ?PNA on CT - no cough, leukocytosis, hypoxia or fever - on ceftriaxone for SBP prophy, consider adding coverage for aspiration PNA if new sx develop full code VTE prophy: pneumoboots, anticoagulant contraindicated due to bleeding Patient with acute GI bleed and acute blood loss anemia secondary to cirrhosis with varices, requiring admission for at least 2 midnight stay for further treatment and workup. <Shukri Lyman MD - Last Filed: 06/09/24 06:37> Quality Stroke Does the patient have a stroke diagnosis?: No <Connie Amato PA-C - Last Filed: 06/09/24 05:43> VTE Prior VTE?: No <Connie Amato PA-C - Last Filed: 06/09/24 05:43> VTE Risk Level:: Medical - moderate - high <Connie Amato PA-C - Last Filed: 06/09/24 05:43> VTE Device Contraindication: N/A - Device Ordered <Connie Amato PA-C - Last Filed: 06/09/24 05:43> VTE Drug Contraindication: Treatment Not Indicated <Connie Amato PA-C - Last Filed: 06/09/24 05:43>
[2024-06-09 05:24] LABS: Anion Gap 15 (12-20); Blood Urea Nitrogen 20 mg/dL (9-16); Calcium 7.4 mg/dL (8.4-10.2); Carbon Dioxide 15 mmol/L (22-29); Chloride 111 mmol/L (96-108); Estimated Glomerular Filt Rate > 60; Glucose Random 106 mg/dL (60-115); Potassium 5.7 mmol/L (3.3-5.1); Sodium 135 mmol/L (135-145)
[2024-06-09] MEDS: Octreotide Acetate 500 MCG in 0.9 % Sodium Chloride 500 ML 50.1 MCG IVCONT ×2 (06:24→18:36)
[2024-06-09] MEDS: Pantoprazole Sodium 40 MG/10 ML VIAL IVPUSH ×2 (06:24→18:21)
--- NOTE | 2024-06-09 07:14 | PM.EVENT ---
Event Note Date of Service: 06/09/24 Event Note: 48-year-old female past medical history significant for alcohol abuse, who presented to the ED last night due to sore throat, hematemesis, fatigue and shortness of breath. CT scan significant for cirrhosis with varices, portal hypertension, mild to moderate ascites, right colon wall thickening patient denied melena, admit of drinking 6-8 beers per day. At present patient awake alert complaining of sore throat of couple months duration no associated fever chills, requesting for diet, no recurrent bleed since admission Acute hyperkalemia likely hemolyzed specimen Repeat potassium normalized Magnesium 1.9. Acute GI bleed, acute blood loss anemia No recurrent bleed noted since arrival - hgb 5.8 hct 20.6 on arrival, now 8.0/.1 - CT with new cirrhosis, portal HTN, varices, and ?coagulopathy, mild to moderate ascites, atypical ?PNA vs pulmonary edema - gastric occult blood + - given 3U PRBC, 1 still transfusing, H+H improving - given vit K in ED - continue IV octreotide, continue IV Protonix and ceftriaxone for CBC prophylaxis NPO Dr. John recommend erythromycin 250 mg at noon, will give 1 unit of FFP prior to procedure in 1 unit of platelets new dx cirrhosis with ascites - no abd pain - low albumin 1.8, INR 3.1 - hepatitis panel pending - ceftriaxone for SBP prophy - AST 85, ALT 22, ALP 112 - ammonia 59, no confusion etoh abuse - etoh level 133 on arrival - phenobarb protocol, monitor CIWA - given thiamine in ED, continue daily - etoh cessation discussed - addiction med consult ?PNA on CT - no cough, leukocytosis, or fever - on ceftriaxone for SBP prophy, consider adding coverage for aspiration PNA if new sx develop Time Spent With Patient Time: Total time managing care of this patient today ____ minutes.
--- NOTE | 2024-06-09 08:21 | PM.GICN ---
History of Present Illness Data of Consult Service Date: 06/09/24 Requesting physician: Shukri Lyman Primary Care Provider: None Physician HPI Reason for consult: hematemesis This is a 48-year-old female with past medical history of alcohol use disorder, who presented to the hospital for multiple episodes of hematemesis leading to acute anemia. History obtained from the patient in the presence of her boyfriend. Reports longstanding (at least 20-25 years) of heavy alcohol use from 6-8 beers every day, did have a short period last year where she was drinking upwards of this. Has history of DUI, ER visit in 2022. Has never been to a rehab but has tried AA meetings. Reports has strong family history of alcohol use disorder as well as cirrhosis. In terms of this admission, reports that starting Wednesday started feeling lousy with decreased appetite. Also had a cold, so attributed to that initially. She then had a large amount of emesis with fresh blood in it. On , she proceeded to have 2 more. When her boyfriend saw the amount of blood in her vomit, he urged her to go to the emergency room. On arrival, patient was noted to be tachycardic with soft blood pressures labs with acute anemia and hemoglobin of 5.8, INR of 3.1, LFTs with total bilirubin of 6.6 and AST more than ALT. Blood alcohol level positive at 133. She has received 3 units of PRBC as of this morning. 1 unit of FFP and platelets as also being readied for transfusion. On bedside assessment, patient is awake, able to provide complete history. Review of Systems Review of Systems: Yes all other systems are reviewed and are negative PMFSH Past Medical History Medical History Alcohol abuse Social History Social History Alcohol intake: current Alcohol intake frequency: 3 or more drinks per day Alcohol type: beer Patient Tobacco Use Status: Former Tobacco user Smoked in Last 30 Days: No Use of substances other than those prescribed or required for medical reasons: No Advance Directives: No Advance Directives Information Provided: No Do you have a plan to hurt others: No Plan Nutrition Risks: No Nutritional Risk Patient : Yes service: No Meds Allergies Allergy/AdvReac Type Severity Reaction Status Date / Time No Known Allergies Allergy Verified 06/08/24 18:37 [No Known Allergies*] Active Medications: Current Medications Acetaminophen (Acetaminophen 325 Mg Tablet) 650 mg PO Q6H PRN PRN Reason: Pain, Mild 1-3,fever,headache Calcium Carbonate (Calcium Carbonate 750 Mg Tab.Chew) 750 mg PO Q4H PRN PRN Reason: Heartburn Ceftriaxone Sodium (Ceftriaxone Sodium 1 Gm Vial) 1 gm IVPUSH Q24H [facility] Octreotide Acetate 500 mcg/ (Sodium Chloride) 501 mls @ 50.1 mls/hr IVCONT .Q10H [facility] Last Admin: 06/09/24 06:24 Dose: 50 mcg/hr, 50.1 mls/hr Thiamine HCl 100 mg/ Sodium (Chloride) 101 mls @ 202 mls/hr IV DAILY [facility] Magnesium Hydroxide (Milk Of Magnesia 30 Ml Oral.Susp) 30 ml PO DAILY PRN PRN Reason: Constipation Melatonin (Melatonin 3 Mg Tablet) 6 mg PO BEDTIME PRN PRN Reason: Insomnia Ondansetron HCl (Ondansetron Hcl 4 Mg/2 Ml Vial) 4 mg IVPUSH Q8H PRN PRN Reason: Nausea and Vomiting Pantoprazole Sodium (Pantoprazole Sodium 40 Mg/10 Ml Vial) 40 mg IVPUSH BID@0630,1630 [facility] Last Admin: 06/09/24 06:24 Dose: 40 mg Pharmacy Consult (Consult Rx Etoh Phenob Im/Po) 1 each MISCELLANE ONCE PRN; Protocol PRN Reason: Consult order Phenobarbital (Phenobarbital 30 Mg Tablet) 30 mg PO BID [facility]; Protocol Stop: 06/10/24 21:01 Phenobarbital (Phenobarbital 15 Mg Tablet) 15 mg PO BID [facility]; Protocol Stop: 06/12/24 21:01 Phenobarbital (Phenobarbital 15 Mg Tablet) 15 mg PO DAILY [facility]; Protocol Stop: 06/14/24 09:01 Sodium Chloride (0.9 % Sodium Chloride Flush 3 Ml Syringe) [facility]ations ?Medication ?Instructions ?Recorded ?Confirmed ?Last Taken ?Type ibuprofen 200 mg tablet (Advil) 200 mg PO BID PRN Pain 06/09/24 06/09/24 Unknown History Physical Exam Vital Signs: Vital Signs: Last Vital Signs Temp 98.8 F 06/09/24 08:19 Pulse 93 06/09/24 08:19 Resp 22 H 06/09/24 08:19 BP 129/79 06/09/24 08:19 Pulse Ox 94 06/09/24 08:19 O2 Del Method Room Air 06/09/24 08:19 BMI result Body Mass Index 28.1 Jaundiced Abd soft, nontender, mildly distended no resp distress A/Ox3, asterixis ++ Nonpitting edema b/l Results Labs 06/09/24 12:05 06/09/24 12:05 Labs: Short CBC 06/08/24 06/09/24 Range/Units 19:20 04:15 WBC 16.0 H 10.8 (4.8-10.8) X10*3/uL Hgb 5.8 L* 8.0 L D (12.0-16.0) g/dl Hct 20.6 L* 25.1 L D (37.0-47.0) % Plt Count 59 L 42 L D (160-400) X10*3/uL BMP 06/08/24 06/09/24 19:20 04:15 Sodium 136 135 Potassium 4.7 5.7 H D Chloride 109 H 111 H Carbon Dioxide 16 L 15 L BUN 17 H 20 H Creatinine 0.74 0.68 Calcium 7.2 L 7.4 L Liver Function 06/08/24 Range/Units 19:20 Total Bilirubin 6.6 H (0.0-1.0) mg/dL Direct Bilirubin 4.2 H (0.0-0.5) mg/dL AST 85 H (5-31) U/L ALT 22 (0-31) U/L Alkaline Phosphatase 112 (39-117) U/L Albumin 1.8 L (3.5-5.0) g/dL Urine 06/09/24 Range/Units 01:12 Urine Color Dark Yellow Urine Appearance Cloudy Urine pH 5.0 (5.0-9.0) Ur Specific [place] >= 1.030 H (1.005-1.025) Urine Protein Negative (Neg-Trace) mg/dL Urine Glucose (UA) Negative (Negative) mg/dL Imaging CT scan - abdomen: Radiologist's impression: Right colon wall thickening, which may be hepatic colopathy. Hepatic cirrhosis with varices and portal hypertension. Small to moderate ascites. Ground-glass opacity in the right lung base, which could be asymmetric pulmonary edema or atypical infection. Diffuse wall thickening of the gallbladder, with cholelithiasis. Wall thickening is a nonspecific finding which can be related to underlying liver disease. Assessment and Plan (1) Decompensated cirrhosis: Status: Acute (2) Hematemesis of fresh blood: Status: Acute (3) Alcohol use disorder: Status: Acute (4) Ascites due to alcoholic cirrhosis: Status: Acute (5) ABLA (acute blood loss anemia): Status: Acute (6) Varices, esophageal: Status: Acute Plan #Newly decompensated cirrhosis - Likely 2/2 etOH use. - MELD-Na 27, Child's Class C - MDF: 112 points - ascites, HE, r/o variceal hemorrhage Clinically consistent with newly decompensated cirrhosis with likely variceal bleeding causing acute anemia of blood loss. Pt also with ascites and mild hepatic encephalopathy on exam. Plan: - Will need urgent EGD today for evaluation and management of UGIB - Pls keep NPO. - IV PPI, octreotide and ceftriaxone - Pls give one dose of erythromycin 250 - Recheck BMP for hyperkalemia. EKG - Pt will also need FFP and platelets - AFTER the egd is completed, should also undergo diagnostic ascitic tap. Send for cell count, culture, albumin, total protein - Once pt able to take PO meds, start lactulose 30 ml TID and Rifaximin 550 BID. - Watch for etOH withdrawal. [place] protocol. - Has alcoholic hepatitis with high Maddreys's however corticosteroids are CONTRAINDICATED in the setting of ongoing GI bleed Thank you for allowing me to participate in her care. Please do not hesitate to reach out for questions or concerns. Procedures Date of Service Date of Service: 06/09/24
[2024-06-09] MEDS: PHENobarbitaL 30 MG TABLET PO (08:35)
[2024-06-09] MEDS: Thiamine HCL 100 MG in 0.9 % Sodium Chloride 100 ML 202 MG IV (08:36)
--- NOTE | 2024-06-09 08:38 | PHA.MEDREC ---
Pharmacy Consult ? Medication Reconciliation Pharmacy has completed the medication reconciliation. Spoke to patient, she said she is not taking any medications except for ibuprofen 200 mg bid prn lately for her sore throat.
[2024-06-09] MEDS: 0.9 % Sodium Chloride Flush 3 ML SYRINGE IVFLUSH ×2 (08:47→18:14)
[2024-06-09 08:51] LABS: HBc Num1 0.23 S/CO (0.00-0.79); HBsAGNum1 0.31 S/CO (0.00-0.99); Hepatitis A Antibody IgM 0.21 Index (0-0.79); Hepatitis B Core Antibody Nonreactive (Nonreactive); Hepatitis B Surface Antigen Negative (Negative); ~HepC Num1 0.24 S/CO (0.00-0.79); ~Hepatitis A Antibody IgM Nonreactive (Nonreactive); ~Hepatitis B Surface Antibody NONREACTIVE (Nonreactive); ~Hepatitis C Antibody Nonreactive (Nonreactive)
[2024-06-09] MEDS: Throat Lozenge, Medicated LOZENGE 1 LOZENGE MUCOUS MEM (09:35)
--- NOTE | 2024-06-09 11:45 | PC.NURSE ---
Call received from Short Stay Surgery for report. RN to RN completed with CHRYSTAL Arias; all questions answered to satisfaction. Per [place], FFP and RBC will be hung by Short Stay staff as they are picking her up in ED in 15 minutes. Pt will be made aware of timeline of events.
[2024-06-09 12:21] LABS: Hematocrit 27.5 % (37.0-47.0); Hemoglobin 8.9 g/dl (12.0-16.0); Mean Corpuscular HGB Conc 32.4 g/dl (31.0-35.0); Mean Corpuscular Hemoglobin 28.7 pg (27.0-33.0); Mean Corpuscular Volume 88.7 fL (80.0-98.0); Mean Platelet Volume 9.5 fL (9.4-12.3); NRBC Pct Auto 0.2 /100WBC (0.0-0.2); White Blood Count 9.9 X10*3/uL (4.8-10.8)
[2024-06-09 12:23] LABS: Platelet Count 39 X10*3/uL (160-400)
[2024-06-09 12:37] LABS: Anion Gap 7 (12-20); Carbon Dioxide 23 mmol/L (22-29); Chloride 112 mmol/L (96-108); Potassium 4.8 mmol/L (3.3-5.1); Sodium 137 mmol/L (135-145)
[2024-06-09 12:52] LABS: Magnesium 1.9 mg/dL (1.6-2.6)
[2024-06-09] MEDS: Erythromycin Lactobionate 250 MG in 0.9 % Sodium Chloride 100 ML 100 MG IV (13:46)
--- NOTE | 2024-06-09 14:20 | PC.NURSE ---
Platelt replacement initiated in ER per protocol. All VS documented in [facility]. Blood bank staff present in room during transfusion. Pt transported to surgery with platelets still transfusing. Care of Pt relinquished OR staff.
--- NOTE | 2024-06-09 14:43 | MHC.SHP ---
Pre-Procedural Eval Section A - 24 Hr Update-Section A only Date of Service: 06/09/24 The patient is an INPATIENT: Yes The patient has been examined within 24 hours of the surgical procedure. The History & Physical has been completed within 30 days and I have reviewed it.: Yes Section B - Complete if H&P > 30 days Chief Complaint: Hematemesis Allergies: Allergies Allergy/AdvReac Type Severity Reaction Status Date / Time No Known Allergies Allergy Verified 06/08/24 18:37 [No Known Allergies*] Plan Diagnosis/Plan: Unchanged I have reviewed the history and physical and performed a pertinent physical examination on my patient. No changes have occurred unless specified. Time Spent With Patient Time: Total time managing care of this patient today ____ minutes.
--- NOTE | 2024-06-09 15:04 | P.CONAN_ITS ---
HPI - Anesthesia Eval Consult details Narrative: 48 yo F presenting for EGD due to hematemesis. Suspected variceal bleed. Newly diagnosed decompensated cirrhotic with ascites. PMFSH Active Problems Active Problems: All Active Problems Varices, esophageal (Acute) Alcohol use disorder (Acute) Hematemesis of fresh blood (Acute) Decompensated cirrhosis (Acute) Ascites due to alcoholic cirrhosis (Acute) ABLA (acute blood loss anemia) (Acute) Acute GI bleeding (Acute) Anemia (Acute) Alcohol abuse (Acute) Cirrhosis (Acute) Past Medical History Medical History Alcohol abuse Functional capacity: independent ambulation Family History Family history of problems with anesthesia: No Surgical History History of Problems with Anesthesia: No Social History Social History Alcohol intake: current Alcohol intake frequency: 3 or more drinks per day Alcohol type: beer Patient Tobacco Use Status: Former Tobacco user service: No Meds Allergies Allergy/AdvReac Type Severity Reaction Status Date / Time No Known Allergies Allergy Verified 06/08/24 18:37 [No Known Allergies*] Active Medications: Current Medications Acetaminophen (Acetaminophen 325 Mg Tablet) 650 mg PO Q6H PRN PRN Reason: Pain, Mild 1-3,fever,headache Calcium Carbonate (Calcium Carbonate 750 Mg Tab.Chew) 750 mg PO Q4H PRN PRN Reason: Heartburn Ceftriaxone Sodium (Ceftriaxone Sodium 1 Gm Vial) 1 gm IVPUSH Q24H [facility] Octreotide Acetate 500 mcg/ (Sodium Chloride) 501 mls @ 50.1 mls/hr IVCONT .Q10H [facility] Last Admin: 06/09/24 06:24 Dose: 50 mcg/hr, 50.1 mls/hr Thiamine HCl 100 mg/ Sodium (Chloride) 101 mls @ 202 mls/hr IV DAILY [facility] Last Infusion: 06/09/24 09:24 Dose: Infused Magnesium Hydroxide (Milk Of Magnesia 30 Ml Oral.Susp) 30 ml PO DAILY PRN PRN Reason: Constipation Melatonin (Melatonin 3 Mg Tablet) 6 mg PO BEDTIME PRN PRN Reason: Insomnia Ondansetron HCl (Ondansetron Hcl 4 Mg/2 Ml Vial) 4 mg IVPUSH Q8H PRN PRN Reason: Nausea and Vomiting Pantoprazole Sodium (Pantoprazole Sodium 40 Mg/10 Ml Vial) 40 mg IVPUSH BID@0630,1630 [facility] Last Admin: 06/09/24 06:24 Dose: 40 mg Pharmacy Consult (Consult Rx Etoh Phenob Im/Po) 1 each MISCELLANE ONCE PRN; Protocol PRN Reason: Consult order Phenobarbital (Phenobarbital 30 Mg Tablet) 30 mg PO BID [facility]; Protocol Stop: 06/10/24 21:01 Last Admin: 06/09/24 08:35 Dose: 30 mg Phenobarbital (Phenobarbital 15 Mg Tablet) 15 mg PO BID [facility]; Protocol Stop: 06/12/24 21:01 Phenobarbital (Phenobarbital 15 Mg Tablet) 15 mg PO DAILY [facility]; Protocol Stop: 06/14/24 09:01 Sodium Chloride (0.9 % Sodium Chloride Flush 3 Ml Syringe) 3 ml IVFLUSH QSHIFT [facility] Last Admin: 06/09/24 08:47 Dose: 3 ml Home Medications ?Medication ?Instructions ?Recorded ?Confirmed ?Last Taken ?Type ibuprofen 200 mg tablet (Advil) 200 mg PO BID PRN Pain 06/09/24 06/09/24 Unknown History Exam Exam Date and Time: 06/09/24 1450 Height,Weight and Vital Signs: Height 4 ft 9 in Weight 58.967 kg Last Vital Signs Temp 99.1 F 06/09/24 14:43 Pulse 89 06/09/24 14:51 Resp 16 06/09/24 14:51 BP 127/87 06/09/24 14:51 Pulse Ox 95 06/09/24 14:43 O2 Del Method Room Air 06/09/24 14:43 Pertinent Lab Results Pertinent Lab Results: Laboratory Tests 06/08/24 06/08/24 06/08/24 19:20 20:41 21:42 WBC 16.0 H RBC 2.37 L Hgb 5.8 L* Hct 20.6 L* MCV 86.9 MCH 24.5 L MCHC 28.2 L RDW 23.0 H Plt Count 59 L MPV 9.9 Immature Gran % (Auto) 0.5 H Neut % (Auto) 82.3 H Lymph % (Auto) 11.7 L Hunt % (Auto) 4.7 Eos % (Auto) 0.2 Baso % (Auto) 0.6 Lymph # (Auto) 1.9 Hunt # (Auto) 0.8 Eos # (Auto) 0.0 Baso # (Auto) 0.1 Abs Immat Gran (auto) 0.08 H Absolute Neuts (auto) 13.2 H Absolute Nucleated RBC 0.000 Nucleated RBC % (auto) 0.0 PT 36.1 H INR 3.1 H APTT 47.1 H Sodium 136 Potassium 4.7 Chloride 109 H Carbon Dioxide 16 L Anion Gap 16 BUN 17 H Creatinine 0.74 Estim Creat Clear Calc 67.1 Estimated GFR > 60 Random Glucose 95 Calcium 7.2 L Magnesium Total Bilirubin 6.6 H Direct Bilirubin 4.2 H AST 85 H ALT 22 Alkaline Phosphatase 112 Ammonia 59 H Total Protein 5.7 L Albumin 1.8 L Lipase 23 Urine Color Urine Appearance Urine pH Ur Specific [place] Urine Protein Urine Glucose (UA) Urine Ketones Urine Blood Urine Nitrite Ur Leukocyte Esterase Urine RBC Urine WBC Ur Squamous Epith Cells Urine Bacteria Hyaline Casts Granular Casts Gastric Occult Blood POSITIVE H Ethyl Alcohol 133 Hepatitis A IgM Ab Nonreactive Hep Bs Antigen Negative Hep Bs Antibody NONREACTIVE Hep B Core Total Ab Nonreactive Hepatitis C Ab (EIA) Nonreactive Influenza Type A (PCR) NEGATIVE Influenza Type B (PCR) NEGATIVE RSV RNA Qual (PCR) NEGATIVE SARS-CoV-2 RNA (RT-PCR) NEGATIVE S. pyogenes GrpA CORIN Negative Blood Type A Positive Antibody Screen NEGATIVE Crossmatch See Detail 06/09/24 06/09/24 06/09/24 01:12 04:15 12:05 WBC 10.8 9.9 RBC 2.78 L 3.10 L Hgb 8.0 L D 8.9 L Hct 25.1 L D 27.5 L MCV 90.3 88.7 MCH 28.8 28.7 MCHC 31.9 32.4 RDW 19.2 H 18.0 H Plt Count 42 L D 39 L MPV 9.8 9.5 Immature Gran % (Auto) 0.5 H Neut % (Auto) 72.5 Lymph % (Auto) 20.8 Hunt % (Auto) 5.2 Eos % (Auto) 0.5 Baso % (Auto) 0.5 Lymph # (Auto) 2.3 Hunt # (Auto) 0.6 Eos # (Auto) 0.1 Baso # (Auto) 0.1 Abs Immat Gran (auto) 0.05 H Absolute Neuts (auto) 7.9 Absolute Nucleated RBC 0.030 H 0.020 H Nucleated RBC % (auto) 0.3 H 0.2 PT INR APTT Sodium 135 137 Potassium 5.7 H D Cancelled Chloride 111 H Carbon Dioxide 15 L Anion Gap 15 BUN 20 H Creatinine 0.68 Estim Creat Clear Calc 73.0 Estimated GFR > 60 Random Glucose 106 Calcium 7.4 L Magnesium 1.9 Total Bilirubin Direct Bilirubin AST ALT Alkaline Phosphatase Ammonia Total Protein Albumin Lipase Urine Color Dark Yellow Urine Appearance Cloudy Urine pH 5.0 Ur Specific [place] >= 1.030 H Urine Protein Negative Urine Glucose (UA) Negative Urine Ketones Trace Urine Blood Negative Urine Nitrite Positive H Ur Leukocyte Esterase Trace H Urine RBC 3-5 H Urine WBC 0-5 Ur Squamous Epith Cells 6-10 Urine Bacteria 3+ Hyaline Casts >20 Granular Casts Present Gastric Occult Blood Ethyl Alcohol Hepatitis A IgM Ab Hep Bs Antigen Hep Bs Antibody Hep B Core Total Ab Hepatitis C Ab (EIA) Influenza Type A (PCR) Influenza Type B (PCR) RSV RNA Qual (PCR) SARS-CoV-2 RNA (RT-PCR) S. pyogenes GrpA CORIN Blood Type Antibody Screen Crossmatch 06/09/24 12:05 WBC RBC Hgb Hct MCV MCH MCHC RDW Plt Count MPV Immature Gran % (Auto) Neut % (Auto) Lymph % (Auto) Hunt % (Auto) Eos % (Auto) Baso % (Auto) Lymph # (Auto) Hunt # (Auto) Eos # (Auto) Baso # (Auto) Abs Immat Gran (auto) Absolute Neuts (auto) Absolute Nucleated RBC Nucleated RBC % (auto) PT INR APTT Sodium Potassium 4.8 Chloride 112 H Carbon Dioxide 23 Anion Gap 7 L BUN Creatinine Estim Creat Clear Calc Estimated GFR Random Glucose Calcium Magnesium Total Bilirubin Direct Bilirubin AST ALT Alkaline Phosphatase Ammonia Total Protein Albumin Lipase Urine Color Urine Appearance Urine pH Ur Specific [place] Urine Protein Urine Glucose (UA) Urine Ketones Urine Blood Urine Nitrite Ur Leukocyte Esterase Urine RBC Urine WBC Ur Squamous Epith Cells Urine Bacteria Hyaline Casts Granular Casts Gastric Occult Blood Ethyl Alcohol Hepatitis A IgM Ab Hep Bs Antigen Hep Bs Antibody Hep B Core Total Ab Hepatitis C Ab (EIA) Influenza Type A (PCR) Influenza Type B (PCR) RSV RNA Qual (PCR) SARS-CoV-2 RNA (RT-PCR) S. pyogenes GrpA CORIN Blood Type Antibody Screen Crossmatch Airway Mallampati Class: IV TM Dist: <=3cm Neck ROM: Full Loose/Missing/Broken Teeth: No (patient denies any loose or broken teeth) Heart: S1S2 Lungs: CTAB Assessment and Plan Assessment Anesthesia Assessment: Anesthesia Plan Discussed and Chart Reviewed Final Anesthetic Review Family History of Problems with Anesthesia: No History of Problems with Anesthesia: No NPO: Yes ASA Class: IV and Emergency Final Preanesthetic Review: No Changes in Pt Med Stat, Meds/Allgs Chart Reviewed, Consent Obtained/Reviewed and Anes Risks/Benef Reviewed Patient Risk: High Procedure Risk: Low Anesthetic Plan Anesthetic Plan: GA and Agree w/ Assess. and Plan Disposition: Standard PACU
--- NOTE | 2024-06-09 16:52 | W.PM.OPN ---
Operative Note Operative Note Date of Service: 06/09/24 Narrative: Preoperative diagnosis: Acute GI bleed, loss of airway Postoperative diagnosis: Same Procedure: Tracheostomy Surgeon: Julián Baptiste MD, Noelle Martin MD Telehealth Nurse Educator: None Anesthesia: General Indications for procedure: 48-year-old female patient with a past history of alcohol abuse and cirrhosis presenting to the ED last evening with a sore throat, hematemesis, fatigue and shortness of breath. Patient apparently drinks 6-8 beers per day for many years. Patient was awaiting an EGD in the OR however upon an attempt at intubation a bleeding tumor was noted at the epiglottis which made visualization of the vocal cords unsuccessful. Surgical consultation was requested for a stat tracheostomy Operative findings: Normal trachea anatomy Specimen: None Estimated blood loss: 50 mL Complications: Procedure details: Informed consent could not be obtained due to the emergency nature of this procedure. Patient's neck was prepped with Betadine. A 15 blade scalpel was then used to create a transverse incision at approximately the level of the 2nd and 3rd tracheal ring. The incision was carried down through subcutaneous tissue past the strap muscles and isthmus of the thyroid to the trachea. A slit was made in the trachea and a tracheal dilator placed as well as a tracheal hook for stabilization. An 8 tracheostomy tube was then inserted and connected to the ventilator. End-tidal CO2 was identified confirming proper placement of the tube. Balloon of the tube was then inflated with air. Hemostasis was assured using free ties of 3-0 Polysorb and suture LigaSure of 4-0 silk suture. Trach was secured using 3-0 nylon sutures closed the incision and secured the tracheostomy tube. A Velcro strap was also applied. No bleeding was noted from tracheostomy tube following the procedure. Patient was transferred to ICU for further monitoring.
--- NOTE | 2024-06-09 17:00 | P.EN_ITS ---
Event Note Date of Service: 06/09/24 Event Note: Pt taken to OR 5 for EGD for UGIB eval under GEA. However, airway could not be secured due to large amount of blood obscuring field and adequate visualization of the cords. Multiple efforts for intubation made by anesthesia providers Hong Baez and Marcela. instrument lens generator surgeons paged for emergent trach. In the meantime, Dr Perez attempted to visualize the airway but again bleeding obscured any visualization. There appears to be a lesion on epiglottis that was oozing with additional blood noted from under it. Emergent tracheostomy performed by Hong Baptiste and Mario. Pt will be transferred to ICU. Pt's boyfriend Palomo updated over the phone. He was also informed that once patient has been further stabilized she will most likely be transferred out to a tertiary care center with ENT and IR support for management of airway bleeding and UGIB. Time Spent With Patient Time: Total time managing care of this patient today ____ minutes.
--- NOTE | 2024-06-09 17:42 | P.CONCC_ITS ---
History of Present Illness Data of Consult Service Date: 06/09/24 Primary Care Provider: None Physician HPI Reason for consult: Hematemesis 48-year-old lady who is a chronic alcoholic presented to the ED complaints of sore throat and hematemesis yesterday. She underwent CT scan of the chest and abdomen and pelvis which showed cirrhosis which is a new diagnosis for her with portal hypertension and variceal physiology. She was planned for upper GI endoscopy and was taken to the OR for an emergent procedure. While attempting intubating the patient for the procedure marble-sized mass was noted in the epiglottis and the environmental services specialist could not visualize the airway despite trying on 3 different laryngoscopes; later large amount blood pool was noted in patient's pharynx needing an emergent trach to be placed. Procedure is aborted and patient is transferred to medical ICU for further management. Patient received several units of PRBC, FFP and platelets in the OR Review of Systems 2 Review of Systems: Unable to obtain as patient is on the [facility] Past Medical History Medical History Alcohol abuse Social History Social History Alcohol intake: current Alcohol intake frequency: 3 or more drinks per day Alcohol type: beer Patient Tobacco Use Status: Former Tobacco user service: No Meds Allergies Allergy/AdvReac Type Severity Reaction Status Date / Time No Known Allergies Allergy Verified 06/08/24 18:37 [No Known Allergies*] Active Medications: Current Medications Acetaminophen (Acetaminophen 325 Mg Tablet) 650 mg PO Q6H PRN PRN Reason: Pain, Mild 1-3,fever,headache Calcium Carbonate (Calcium Carbonate 750 Mg Tab.Chew) 750 mg PO Q4H PRN PRN Reason: Heartburn Ceftriaxone Sodium (Ceftriaxone Sodium 1 Gm Vial) 1 gm IVPUSH Q24H [facility] Haloperidol Lactate (Haloperidol Lactate 5 Mg/Ml Vial) 1 mg IVPUSH ONCE PRN PRN Reason: intractable nausea Stop: 06/09/24 21:09 Hydromorphone HCl (Hydromorphone Hcl 0.5 Mg/0.5 Ml Syringe) 0.25 mg IVPUSH Q5M PRN PRN Reason: Pain, Moderate to Severe (Pain Scale 4-10) Stop: 06/09/24 21:09 Octreotide Acetate 500 mcg/ (Sodium Chloride) 501 mls @ 50.1 mls/hr IVCONT .Q10H [facility] Last Admin: 06/09/24 06:24 Dose: 50 mcg/hr, 50.1 mls/hr Thiamine HCl 100 mg/ Sodium (Chloride) 101 mls @ 202 mls/hr IV DAILY [facility] Last Infusion: 06/09/24 09:24 Dose: Infused Magnesium Hydroxide (Milk Of Magnesia 30 Ml Oral.Susp) 30 ml PO DAILY PRN PRN Reason: Constipation Melatonin (Melatonin 3 Mg Tablet) 6 mg PO BEDTIME PRN PRN Reason: Insomnia Naloxone HCl (Naloxone Hcl 0.4 Mg/Ml Vial) 0.04 mg IVPUSH Q5M PRN PRN Reason: Excessive sedation or RR < 8 Ondansetron HCl (Ondansetron Hcl 4 Mg/2 Ml Vial) 4 mg IVPUSH Q8H PRN PRN Reason: Nausea and Vomiting Pantoprazole Sodium (Pantoprazole Sodium 40 Mg/10 Ml Vial) 40 mg IVPUSH BID@0630,1630 [facility] Last Admin: 06/09/24 06:24 Dose: 40 mg Pharmacy Consult (Consult Rx Etoh Phenob Im/Po) 1 each MISCELLANE ONCE [facility]; Protocol PRN Reason: Consult order Phenobarbital (Phenobarbital 30 Mg Tablet) 30 mg PO BID [facility]; Protocol Stop: 06/10/24 21:01 Last Admin: 06/09/24 08:35 Dose: 30 mg Phenobarbital (Phenobarbital 15 Mg Tablet) 15 mg PO BID [facility]; Protocol Stop: 06/12/24 21:01 Phenobarbital (Phenobarbital 15 Mg Tablet) 15 mg PO DAILY [facility]; Protocol Stop: 06/14/24 09:01 Sodium Chloride (0.9 % Sodium Chloride Flush 3 Ml Syringe) [facility] Admin: 06/09/24 08:47 Dose: 3 ml Home Medications ?Medication ?Instructions ?Recorded ?Confirmed ?Last Taken ?Type ibuprofen 200 mg tablet (Advil) 200 mg PO BID PRN Pain 06/09/24 06/09/24 Unknown History Physical Exam 2 Vital Signs: Vital Signs: Last Vital Signs Temp 99.3 F 06/09/24 15:11 Pulse 89 06/09/24 15:11 Resp 16 06/09/24 15:11 BP 124/74 06/09/24 15:11 Pulse Ox 95 06/09/24 14:43 O2 Del Method Room Air 06/09/24 14:43 BMI result Body Mass Index 28.1 General: Patient is in acute distress with a new trach Nutritional Appearance: well nourished and overweight Eyes: appearance normal, both eyes and all related structures; Alignment and Position: alignment normal and position normal Neck: No lymphadenopathy, no thyromegaly Resp: bilateral air entry equal, occasional added sounds present Cardio: Regular rate, regular rhythm; Heart sounds: S1 normal heart sound present and S2 normal heart sound present GI: soft, nontender, no guarding, no hepatosplenomegaly : bladder normal to inspection, bladder normal to palpation, no renal angle tenderness Skin: no rashes or lesions noted and elasticity normal Neuro: Sedated, no focal deficits Results Labs 06/09/24 12:05 06/09/24 12:05 Labs: Short CBC 06/08/24 06/09/24 06/09/24 Range/Units 19:20 04:15 12:05 WBC 16.0 H 10.8 9.9 (4.8-10.8) X10*3/uL Hgb 5.8 L* 8.0 L D 8.9 L (12.0-16.0) g/dl Hct 20.6 L* 25.1 L D 27.5 L (37.0-47.0) % Plt Count 59 L 42 L D 39 L (160-400) X10*3/uL BMP 06/08/24 06/09/24 06/09/24 19:20 04:15 12:05 Sodium 136 135 137 Potassium 4.7 5.7 H D Cancelled Chloride 109 H 111 H Carbon Dioxide 16 L 15 L BUN 17 H 20 H Creatinine 0.74 0.68 Calcium 7.2 L 7.4 L 06/09/24 12:05 Sodium Potassium 4.8 Chloride 112 H Carbon Dioxide 23 BUN Creatinine Calcium Liver Function 06/08/24 Range/Units 19:20 Total Bilirubin 6.6 H (0.0-1.0) mg/dL Direct Bilirubin 4.2 H (0.0-0.5) mg/dL AST 85 H (5-31) U/L ALT 22 (0-31) U/L Alkaline Phosphatase 112 (39-117) U/L Albumin 1.8 L (3.5-5.0) g/dL Urine 06/09/24 Range/Units 01:12 Urine Color Dark Yellow Urine Appearance Cloudy Urine pH 5.0 (5.0-9.0) Ur Specific [place] >= 1.030 H (1.005-1.025) Urine Protein Negative (Neg-Trace) mg/dL Urine Glucose (UA) Negative (Negative) mg/dL Assessment and Plan (1) Alcohol abuse: Status: Acute (2) Hematemesis of fresh blood: Status: Acute (3) Decompensated cirrhosis: Status: Acute (4) Acute GI bleeding: Status: Acute (5) Cirrhosis: Status: Acute Plan Neuro: Acute encephalopathy possibly due to metabolic encephalopathy On propofol for sedation, as needed fentanyl for analgesia Close neurological status monitoring in the ICU every hour Cardiac: Shock: Possibly secondary to hemorrhagic shock from large amount of blood loss On Levophed support, titrate Levophed to keep map above 65 mm Hg Respiratory: Acute hypoxemic respiratory failure due to aspiration pneumonia from aspirating blood and other contents Status post emergent trach, questionable epiglottic mass; Currently on ventilator support On PRVC mode FiO2 60%, PEEP 10, TV 300 RR 20 Peak pressures and plateau pressures are under the curve Ventilator management bundle with head end elevation, aspiration precaution, chlorhexidine mouthwash, daily awakening trials, daily spontaneous breathing trials 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 and octreotide drip Unable to do the upper GI endoscopic due to acute decompensation Patient needs to be transferred to outside facility as we do not have IR backup for the procedure over the weekend Renal: Baseline creatinine normal, repeat creatinine pending We will closely monitor I's and O's Avoid nephrotoxic medications Heme: Acute blood loss anemia: Secondary to variceal bleed Presented with a hemoglobin of 5.8, Received 4 units of PRVC overnight. Hemoglobin remained stable during the day between 8-8.9 Since she further blood during the procedure we will get a repeat hemoglobin We will send repeat PT INR, received 1 FFP Thrombocytopenia: Platelet count down to 39,000 secondary to cirrhotic physiology Received 1 unit of pooled platelets prior to the procedure Endocrine: Blood sugars under control Sliding scale insulin as needed Infectious disease: We will send pancultures On empiric ceftriaxone for GI prophylaxis Musculoskeletal: Decubitus ulcer prevention protocol Lines: Garvin catheter Peripheral line Prophylaxis: SCD, pantoprazole Critical care time spent is about 60 minutes on stabilizing this patient with acute hemorrhagic shock, new emergent tracheostomy, stabilizing her respiratory status, ventilator management, sedation management, managing AFib blood loss anemia, close hemodynamic monitoring, review of labs and images, admission to the critical care unit and formulating critical care plan and management at this time is excluding any procedural time.
[2024-06-09] MEDS: propofoL 1,000 MG/100 ML VIAL 10.61 MG IVCONT (18:10)
[2024-06-09 18:39] LABS: Hematocrit 24.9 % (37.0-47.0); Hemoglobin 7.8 g/dl (12.0-16.0); Mean Corpuscular HGB Conc 31.3 g/dl (31.0-35.0); Mean Corpuscular Hemoglobin 28.7 pg (27.0-33.0); Mean Corpuscular Volume 91.5 fL (80.0-98.0); Mean Platelet Volume 10.1 fL (9.4-12.3); NRBC Pct Auto 0.3 /100WBC (0.0-0.2); Red Blood Count 2.72 X10*6/uL (4.20-5.50); Red Cell Distribution Width 18.6 % (11.0-16.0); White Blood Count 7.3 X10*3/uL (4.8-10.8)
[2024-06-09 18:41] LABS: INTERNATIONAL NORM RATIO 1.7 (0.9-1.1); Prothrombin Time 20.2 SEC (10.9-12.4)
[2024-06-09 18:48] LABS: Alanine Aminotransferase 28 U/L (0-31); Albumin Level 2.3 g/dL (3.5-5.0); Alkaline Phosphatase 98 U/L (39-117); Anion Gap 8 (12-20); Aspartate Amino Transferase 88 U/L (5-31); Bilirubin Total 8.4 mg/dL (0.0-1.0); Blood Urea Nitrogen 17 mg/dL (9-16); Carbon Dioxide 22 mmol/L (22-29); Chloride 111 mmol/L (96-108); Creatinine Clr Calc Pharmacy 77.6; Estimated Glomerular Filt Rate > 60; Glucose Random 115 mg/dL (60-115); Potassium 4.2 mmol/L (3.3-5.1); Sodium 137 mmol/L (135-145); Total Protein 5.9 g/dL (6.5-8.0)
[2024-06-09 18:55] LABS: Lactic Acid 3.4 mmol/L (0.5-2.0)
[2024-06-09 19:03] LABS: Platelet Count 49 X10*3/uL (160-400)
--- NOTE | 2024-06-09 19:22 | PC.NURSE ---
Pt arrived at the unit approximately?at 1800 from the OR s/p tracheostomy. MD and RT at the bedside. Propofol infusion per MAR, lloyd cath placed. Trach site clean and? ties changed by RT. Surgicel?and xeroform applied around?the trach site by .
[2024-06-09] MEDS: Albumin Human 25 % 100 ML IV ×2 (20:03→20:54)
[2024-06-09] MEDS: Tranexamic Acid 1,000 MG in 0.9 % Sodium Chloride 250 ML 32.5 MG IV (20:13)
[2024-06-09 20:27] LABS: Reflex Lactate? Lactic Acid Added
[2024-06-09 20:36] LABS: Hematocrit 27.8 % (37.0-47.0); Hemoglobin 9.1 g/dl (12.0-16.0); Mean Corpuscular HGB Conc 32.7 g/dl (31.0-35.0); Mean Corpuscular Hemoglobin 29.7 pg (27.0-33.0); Mean Corpuscular Volume 90.8 fL (80.0-98.0); Mean Platelet Volume 8.8 fL (9.4-12.3); Red Blood Count 3.06 X10*6/uL (4.20-5.50); Red Cell Distribution Width 18.8 % (11.0-16.0); White Blood Count 5.9 X10*3/uL (4.8-10.8)
[2024-06-09 20:42] LABS: Platelet Count 44 X10*3/uL (160-400)
[2024-06-09] MEDS: Lactated Ringers 500 ML IVCONT (21:17)
[2024-06-09 21:40] LABS: Alanine Aminotransferase 23 U/L (0-31); Albumin Level 2.8 g/dL (3.5-5.0); Alkaline Phosphatase 91 U/L (39-117); Anion Gap 11 (12-20); Aspartate Amino Transferase 82 U/L (5-31); Bilirubin Total 8.3 mg/dL (0.0-1.0); Blood Urea Nitrogen 17 mg/dL (9-16); Calcium 8.2 mg/dL (8.4-10.2); Carbon Dioxide 22 mmol/L (22-29); Chloride 110 mmol/L (96-108); Estimated Glomerular Filt Rate > 60; Glucose Random 113 mg/dL (60-115); Potassium 4.7 mmol/L (3.3-5.1); Sodium 138 mmol/L (135-145); Total Protein 6.1 g/dL (6.5-8.0)
--- NOTE | 2024-06-09 21:42 | P.DS_ITS ---
DS: Providers Provider Date of Service: 06/09/24 Date of admission: 06/09/24 02:17 Date of discharge: 06/09/24 Primary care physician: Ruby Physician Admitting clinician: Shukri Lyman Attending physician on admission: Shukri Lyman Consults: 06/09/24 05:16 Addiction Medicine Routine Consulting Provider: Tavares Caba Reason for consultation: alcohol use disorder 06/09/24 05:37 Consult to Gastroenterology Routine Consulting Provider: Keisha John Reason for consultation: Hematemesis Attending physician on discharge: Tr Boss Discharging clinician: Brett Valadez DS: Transfer Hospital Acceptance Reason for Transfer: Bleeding epiglottic tumor Variceal bleeding Patient requires multidisciplinary diagnosis and treatment with interventional radiologist and ENT which would not have at this facility at this point. Name of Facility: [facility] Accepting Provider: DR. HODGES DS: Diagnosis Discharge Diagnosis (1) Alcohol abuse: Status: Acute (2) Hematemesis of fresh blood: Status: Acute (3) Decompensated cirrhosis: Status: Acute (4) Acute GI bleeding: Status: Acute (5) Cirrhosis: Status: Acute DS: Summary Hospital Course Hospital Course: ADMISSION/DISCHARGE DIAGNOSIS 1.? Postop day 0. post emergent tracheostomy during attempted EGD 2.? Acute hypoxic respiratory failure 3.? 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 Upper GI bleed in the setting of esophageal varices 5.? Alcohol abuse 6.? Anemia of acute blood loss post packed red blood cells 7.? Acute on chronic thrombocytopenia likely due to liver disease post platelet transfusion 8.? Hypoalbuminemia 9.? Mild transaminitis elevation likely due to chronic alcohol ingestion 10.?? Hepatic cirrhosis with varices and portal hypertension 11.?? Small to moderate ascites 12.?? Ground-glass opacity in the right lung base questionable pulmonary edema versus atypical infection 13.?? Diffuse wall thickening of the gallbladder with cholelithiasis which could represent gallbladder versus liver disease related DISCHARGE MEDICATIONS: 1.? Octreotide 50 micrograms/hour 2.? Protonix 40 mg IV push b.i.d. 3.? Rocephin 1 g IV push Q 24 hours 4.? Thiamine 100 mg IV daily 5.? Folic acid 1 mg IV daily 6.? Propofol drip for sedation protocol Vital signs prior to transfer Blood pressure 99/71 with map of 79, heart rate 81, respirations 15, O2 sat 99% on a vent, temperature 98.4 degrees. Vent settings via tracheostomy AC 14 / 300 / 30% / 8 HPI/ Medical ICU hospital course: Patient who is a 48-year-old female with underlying history of alcoholism and who had been admitted to the [facility] yesterday due to complaints of sore throat and hematemesis, fatigue and shortness of breath and who drinks about 6-8 beers daily, was admitted for suspected upper GI bleed and acute blood loss anemia; her H&H at the time was 5.8 and 20.6 respectively requiring 4 units of packed red blood cells in total, platelet count was as low as 39, she also received vitamin K, was placed on octreotide and Protonix, Rocephin for SBP prophylaxis and treatment of possible pneumonia.? Alcohol level at the time was 01:33 and was placed on CIWA. Gastroenterology was consulted in light of the patient's CT findings which showed hepatic cirrhosis with varices and portal hypertension planned an EGD in the OR today. The procedure was attempted this afternoon and 17:00 however upon attempting intubation a obstructing bleeding tumor was noted at the epiglottis which made it difficult to visualize the visual cords.? Patient became hypoxic, despite multiple attempts for intubation made my anesthesia, this was not possible. ?and stat surgical consultation was required for stat tracheostomy placement which was performed by Dr. Sanford. In the meantime, Dr Perez (topper press operator automatic) attempted to visualize the airway but again bleeding obscured any visualization. There appears to be a lesion on epiglottis that was oozing with additional blood noted from under it, likely from the varices. Since transferred to the ICU, the patient has remained hemodynamically stable without needing pressors, she did receive albumin bags x2 and 500 cc of LR.? Her latest H and H of 20:20 tonight was 9.1 and 27.8 [place] [address], the patient did receive a pack of platelets. Multidisciplinary recommendation was made for the patient to be transferred out to a tertiary care center with ENT and IR support for management of airway bleeding and UGIB. The case was discussed in detail with Dr. Hodges from [facility] (Accepting MD), and verbal sign out was given to the Physician Underlay Stitcher Mrs. Morrell PAC Time Attestation Total time managing care of this patient today: 60 mintues. Discharge Coordination Time (in mins): Critical care time used for critical evaluation of this patient, diagnosis, treatment and coordination of care, review her records and documentation, transfer coordination, clinician discussions. TOTAL CRITICAL CARE TIME 60 MIN . discussion and coordination with consultants, completely separate from any procedures performed. . Patient's care was discussed in detail with Dr. Boss. He is aware of all the above as well as the plan of care for this patient. Quality: Safe Use of Opioids Does Pt have an Active Cancer Diagnosis on the Problem List?: No Quality: Stroke Does the patient have a stroke diagnosis?: No Physical Exam Vital Signs: Vital Signs: Last Vital Signs Temp 98.4 F 06/09/24 20:57 Pulse 89 06/09/24 20:57 Resp 17 06/09/24 20:57 BP 98/68 06/09/24 20:57 Pulse Ox 99 06/09/24 20:57 O2 Del Method Mechanical Ventil ation 06/09/24 20:57 FiO2 30 06/09/24 20:57 BMI result Body Mass Index 28.1 Sedated, ventilated with the above-mentioned settings via trach Tracheostomy surroundings clean, dry intact, no bleeding noted. Heart regular rate and rhythm no murmurs rubs or gallops Lungs clear to auscultation bilaterally no wheezes rales rhonchi although somewhat diminished at the right base Abdomen protuberant, positive bowel sounds, distended, no caput medusa.? Garvin catheter in place with yellow/orange urine. Passive range of motion of upper and lower extremities bilaterally showed no cogwheeling, no crepitus, no asymmetry or leg edema. ?Peripheral IVs are noted in bilateral antecubital areas and left hand. Neuro sedated, pupils 4 mm reactive to light.? No focal deficits noted Vascular 2+ pulses bilaterally upper and lower extremities bilaterally and distally.? Less than 2nd capillary refill finger and toes bilaterally upper and lower extremities. DS: Data Data Completed and Pending Labs on day of discharge: Laboratory Results - last 24 hr 06/08/24 06/08/24 06/08/24 19:20 20:41 21:42 WBC RBC Hgb Hct MCV MCH MCHC RDW Plt Count MPV Immature Gran % (Auto) Neut % (Auto) Lymph % (Auto) [place] % (Auto) Eos % (Auto) Baso % (Auto) Lymph # (Auto) [place] # (Auto) Eos # (Auto) Baso # (Auto) Abs Immat Gran (auto) Absolute Neuts (auto) Absolute Nucleated RBC Nucleated RBC % (auto) Hold Purple Top PT INR Sodium Potassium Chloride Carbon Dioxide Anion Gap BUN Creatinine Estim Creat Clear Calc Estimated GFR Random Glucose Lactic Acid Calcium Magnesium Total Bilirubin AST ALT Alkaline Phosphatase Total Protein Albumin Urine Color Urine Appearance Urine pH Ur Specific [place] Urine Protein Urine Glucose (UA) Urine Ketones Urine Blood Urine Nitrite Ur Leukocyte Esterase Urine RBC Urine WBC Ur Squamous Epith Cells Urine Bacteria Hyaline Casts Granular Casts Gastric Occult Blood POSITIVE H Hepatitis A IgM Ab Nonreactive Hep Bs Antigen Negative Hep Bs Antibody NONREACTIVE Hep B Core Total Ab Nonreactive Hepatitis C Ab (EIA) Nonreactive Blood Type A Positive Antibody Screen NEGATIVE Crossmatch See Detail 06/09/24 06/09/24 06/09/24 01:12 04:15 12:05 WBC 10.8 9.9 RBC 2.78 L 3.10 L Hgb 8.0 L D 8.9 L Hct 25.1 L D 27.5 L MCV 90.3 88.7 MCH 28.8 28.7 MCHC 31.9 32.4 RDW 19.2 H 18.0 H Plt Count 42 L D 39 L MPV 9.8 9.5 Immature Gran % (Auto) 0.5 H Neut % (Auto) 72.5 Lymph % (Auto) 20.8 [place] % (Auto) 5.2 Eos % (Auto) 0.5 Baso % (Auto) 0.5 Lymph # (Auto) 2.3 [place] # (Auto) 0.6 Eos # (Auto) 0.1 Baso # (Auto) 0.1 Abs Immat Gran (auto) 0.05 H Absolute Neuts (auto) 7.9 Absolute Nucleated RBC 0.030 H 0.020 H Nucleated RBC % (auto) 0.3 H 0.2 Hold Purple Top PT INR Sodium 135 137 Potassium 5.7 H D Cancelled Chloride 111 H Carbon Dioxide 15 L Anion Gap 15 BUN 20 H Creatinine 0.68 Estim Creat Clear Calc 73.0 Estimated GFR > 60 Random Glucose 106 Lactic Acid Calcium 7.4 L Magnesium 1.9 Total Bilirubin AST ALT Alkaline Phosphatase Total Protein Albumin Urine Color Dark Yellow Urine Appearance Cloudy Urine pH 5.0 Ur Specific [place] >= 1.030 H Urine Protein Negative Urine Glucose (UA) Negative Urine Ketones Trace Urine Blood Negative Urine Nitrite Positive H Ur Leukocyte Esterase Trace H Urine RBC 3-5 H Urine WBC 0-5 Ur Squamous Epith Cells 6-10 Urine Bacteria 3+ Hyaline Casts >20 Granular Casts Present Gastric Occult Blood Hepatitis A IgM Ab Hep Bs Antigen Hep Bs Antibody Hep B Core Total Ab Hepatitis C Ab (EIA) Blood Type Antibody Screen Crossmatch 06/09/24 06/09/24 06/09/24 12:05 18:07 18:23 WBC 7.3 RBC 2.72 L Hgb 7.8 L Hct 24.9 L MCV 91.5 MCH 28.7 MCHC 31.3 RDW 18.6 H Plt Count 49 L D MPV 10.1 Immature Gran % (Auto) Neut % (Auto) Lymph % (Auto) [place] % (Auto) Eos % (Auto) Baso % (Auto) Lymph # (Auto) [place] # (Auto) Eos # (Auto) Baso # (Auto) Abs Immat Gran (auto) Absolute Neuts (auto) Absolute Nucleated RBC 0.020 H Nucleated RBC % (auto) 0.3 H Hold Purple Top SEE NOTE PT 20.2 H D INR 1.7 H Sodium 137 Potassium 4.8 4.2 Chloride 112 H 111 H Carbon Dioxide 23 22 Anion Gap 7 L 8 L BUN 17 H Creatinine 0.64 Estim Creat Clear Calc 77.6 Estimated GFR > 60 Random Glucose 115 Lactic Acid 3.4 H* Calcium 8.0 L D Magnesium Total Bilirubin 8.4 H AST 88 H ALT 28 Alkaline Phosphatase 98 Total Protein 5.9 L Albumin 2.3 L Urine Color Urine Appearance Urine pH Ur Specific [place] Urine Protein Urine Glucose (UA) Urine Ketones Urine Blood Urine Nitrite Ur Leukocyte Esterase Urine RBC Urine WBC Ur Squamous Epith Cells Urine Bacteria Hyaline Casts Granular Casts Gastric Occult Blood Hepatitis A IgM Ab Hep Bs Antigen Hep Bs Antibody Hep B Core Total Ab Hepatitis C Ab (EIA) Blood Type Antibody Screen Crossmatch 06/09/24 06/09/24 20:10 21:11 WBC 5.9 RBC 3.06 L Hgb 9.1 L Hct 27.8 L MCV 90.8 MCH 29.7 MCHC 32.7 RDW 18.8 H Plt Count 44 L MPV 8.8 L Immature Gran % (Auto) Neut % (Auto) Lymph % (Auto) [place] % (Auto) Eos % (Auto) Baso % (Auto) Lymph # (Auto) [place] # (Auto) Eos # (Auto) Baso # (Auto) Abs Immat Gran (auto) Absolute Neuts (auto) Absolute Nucleated RBC 0.000 Nucleated RBC % (auto) 0.0 Hold Purple Top PT INR Sodium 138 Potassium 4.7 Chloride 110 H Carbon Dioxide 22 Anion Gap 11 L BUN 17 H Creatinine 0.68 Estim Creat Clear Calc 73.0 Estimated GFR > 60 Random Glucose 113 Lactic Acid Calcium 8.2 L Magnesium Total Bilirubin 8.3 H AST 82 H ALT 23 Alkaline Phosphatase 91 Total Protein 6.1 L Albumin 2.8 L Urine Color Urine Appearance Urine pH Ur Specific [place] Urine Protein Urine Glucose (UA) Urine Ketones Urine Blood Urine Nitrite Ur Leukocyte Esterase Urine RBC Urine WBC Ur Squamous Epith Cells Urine Bacteria Hyaline Casts Granular Casts Gastric Occult Blood Hepatitis A IgM Ab Hep Bs Antigen Hep Bs Antibody Hep B Core Total Ab Hepatitis C Ab (EIA) Blood Type Antibody Screen Crossmatch Imaging Chest x-ray: Attestation: I personally reviewed and interpreted this imaging study as follows: Radiologist's impression: [place] [id number] XRay Report Signed Patient: Priyanka Antonio MR#: [id number] : 1975 Acct:[id number] Age/Sex: 48 / F ADM Date: 06/09/24 Loc: .[facility] 253-[address]: Tr Boss MD Ordering Physician: Tr Boss MD Date of Service: 06/09/24 Procedure(s): XR chest 1V Accession Number(s): [id number] cc: Tr Boss MD; Physician,None ~ CLINICAL HISTORY: trach aspiration 1 view chest x-ray Comparison: None Findings: Central perihilar hazy opacities in the right greater than left lung. No effusion or pneumothorax. Tracheostomy tube in expected position overlying the mid trachea. Moderate cardiomegaly. No acute fracture. IMPRESSION: 1. Central hazy perihilar opacities in the right greater than left lung. These likely correspond with ground-glass opacity seen on CT yesterday. Differential includes pulmonary edema, infection (possibly atypical) or aspiration. This document has been electronically signed by: Mak Puri MD on 06/09/2024 19:06:38 Dictated By: Mak Puri MD Signed By: <Electronically signed by Mak Puri MD in [place]> 06/09/241907 DD/ 05 TD/TT: 06/09/241905 Carbide Tool Maker: CT scan - abdomen: Radiologist's impression: [address] [address] [address] Scan Report Signed Patient: Priyanka Antonio MR#: [id number] : 1975 Acct:[id number] Age/Sex: 48 / F ADM Date: 06/08/24 Loc: HO.ED Attending Dr: Ordering Physician: Lashawn Garner MD Date of Service: 06/08/24 Procedure(s): CT gi bleed abd pel wo/w IVcon Accession Number(s): [id number] cc: Lashawn Garner MD; Physician,None ~ Report Number: [id number]: Total DLP = 1254.00 mGy-cm CLINICAL HISTORY: gi bleed, etoh CT abdomen and pelvis with and without contrast Comparison: None Findings: Ground-glass opacity in the central right lung base with a centrilobular appearance. The spleen is normal in size. Adrenal glands, kidneys, pancreas are unremarkable. Diffuse gallbladder wall thickening, which may be related to underlying liver disease. There is a stone within the gallbladder. No bowel obstruction, pneumoperitoneum, or pneumatosis. There is mild wall thickening of the right colon which may be hepatic colopathy. Diffusely lobulated liver consistent with cirrhosis. Gastroesophageal, perigastric and gastrohepatic varices are present. Varices extend into the gastric lumen.Recanalization of the umbilical vein present. Pelvic contents unremarkable. Normal appendix. Adhe-tq-oevaqqnx ascites. No acute fracture. Body wall anasarca. IMPRESSION: Right colon wall thickening, which may be hepatic colopathy. Hepatic cirrhosis with varices and portal hypertension. Small to moderate ascites. Ground-glass opacity in the right lung base, which could be asymmetric pulmonary edema or atypical infection. Diffuse wall thickening of the gallbladder, with cholelithiasis. Wall thickening is a nonspecific finding which can be related to underlying liver disease. This document has been electronically signed by: Mak Puri MD on 06/09/2024 00:52:56 Dictated By: Mak Puri MD Signed By: <Electronically signed by Mak Puri MD in [place]> 06/09/2452 DD/ TD/TT: 06/09/2451 Carbide Tool Maker: Discharge Plan Discharge Anticipated Discharge Date/Time: 06/09/24 22:30 Patient Disposition: er Acute Care Hospital Discharge Diagnosis: Epiglotic Mass, UGIB, Referrals: Physician,None [Primary Care Provider] - 1 Week Discharge Medications: No Action ibuprofen [Advil] 200 mg Tablet 200 mg PO BID PRN (Reason: Pain) Discharge Orders: Discharge Order (Routine); Ordered 06/09/24 Ordered By: Brett Valadez Diet: NPO Activity on Discharge: BED REST Stand Alone Forms: Patient Portal Discharge page Print Language: Hungarian Care Plan Goals: per [facility] Concerns: Epiglotic tumor UGIB Plan of Treatment: Transfer to a facility where Interventional Radiology, ENT are available Assessment: As above Discharge Date/Time: 06/09/24 22:51
[2024-06-09] MEDS: cefTRIAXone sodium 1 GM VIAL IVPUSH (21:46)
[2024-06-09] MEDS: Folic Acid 1 MG in 0.9 % Sodium Chloride 50 ML 100.4 MG IV (22:00)
[2024-06-09] MEDS: propofoL 1,000 MG/100 ML VIAL 14.15 MG IVCONT (22:20)
[2024-06-09 22:27] LABS: Glucose, Whole Blood 119 mg/dL (60-115)
--- NOTE | 2024-06-09 23:00 | PC.NURSE ---
Addendum entered by Aby Rodriguez RN 06/09/24 23:05: restrains d/c at time of transfer Original Note: pt transfered to [facility] via [facility], report given to accepting prema JARRELL in place at time of transfer, family updated of plan of care.
[2024-06-09 23:14] LABS: Reflex Lactate? 2 Y
[2024-06-09 23:22] LABS: ~Lactic Acid-LAB USE ONLY 3.5 mmol/L (0.5-2.0)
== END 2024-06-09 22:51 | disposition short-term general hospital (02) | DRG 143 ==
LOC: HO.ED 06-09 01:12 → HO.EDOVER 06-09 02:21 → HO.ICU 06-09 16:44
PROVIDERS: Anesthesiology; Hospitalist; Internal Medicine; Physician Assistant; Physician Assistant Medical; Admitting Provider Student in an Organized Health Care Education/Training Program; Emergency Provider Emergency Medicine; Visit Provider Internal Medicine Critical Care Medicine
PROC: 0DJ08ZZ Inspection of Upper Intestinal Tract, Via Natural or Artificial Opening Endoscopic (ICD-10-PCS; CPT 43235; principal; 2024-06-09 13:00)
DX: D49.1 Neoplasm of unspecified behavior of respiratory system (principal); R57.8 Other shock; I85.11 Secondary esophageal varices with bleeding; G93.41 Metabolic encephalopathy; K76.6 Portal hypertension; K80.20 Calculus of gallbladder without cholecystitis without obstruction; K70.31 Alcoholic cirrhosis of liver with ascites; D69.6 Thrombocytopenia, unspecified; D62 Acute posthemorrhagic anemia; Y90.6 Blood alcohol level of 120-199 mg/100 ml; F10.20 Alcohol dependence, uncomplicated; Z20.822 Contact with and (suspected) exposure to COVID-19
CPT/HCPCS: 0241U; 36415; 71045; 74178; 80048; 80051; 80053; 80307; 81001; 82140; 82248; 82271; 82947; 83605; 83690; 83735; 85025; 85027; 85610; 85730; 86704; 86706; 86709; 86803; 86850; 86900; 86901; 86923; 87040; 87340; 87651; 93005; 94002; 99285; C1758; J0690; J0696; J1364; J1720; J2003; J2250; J2354; J2405; J2470; J2560; J2704; J3010; J3411; J3430; J7120; P9016; P9017; P9047; P9073; Q9967

== ENCOUNTER → 2024-06-08 20:24 | Outpatient (BNV) | payer MEDICAID, SELFPAY | PROVIDERS: Emergency Provider Emergency Medicine; Visit Provider Radiology Diagnostic Radiology | DX: K70.31 Alcoholic cirrhosis of liver with ascites (principal); I85.01 Esophageal varices with bleeding; K76.6 Portal hypertension; K80.18 Calculus of gallbladder with other cholecystitis without obstruction | CPT/HCPCS: 74178 ==

== ENCOUNTER 2024-06-09 02:17 | Outpatient (BNV) | payer MEDICAID, SELFPAY | END 2024-06-09 18:45 | PROVIDERS: Admitting Provider Student in an Organized Health Care Education/Training Program; Emergency Provider Emergency Medicine; Visit Provider Radiology Diagnostic Radiology | DX: R91.8 Other nonspecific abnormal finding of lung field (principal) | CPT/HCPCS: 71045 ==

== ENCOUNTER 2024-06-09 02:17 | Outpatient (BNV) | payer MEDICAID, SELFPAY | END 2024-06-09 12:12 | PROVIDERS: Admitting Provider Student in an Organized Health Care Education/Training Program; Emergency Provider Emergency Medicine; Visit Provider Internal Medicine Cardiovascular Disease | DX: R94.31 Abnormal electrocardiogram [ECG] [EKG] (principal) | CPT/HCPCS: 93010 ==

== ENCOUNTER → 2024-06-09 02:17 | Outpatient (BNV) | payer MEDICAID, SELFPAY | PROVIDERS: Admitting Provider Student in an Organized Health Care Education/Training Program; Emergency Provider Emergency Medicine; Visit Provider Internal Medicine Critical Care Medicine | DX: F10.10 Alcohol abuse, uncomplicated (principal); K92.0 Hematemesis; K72.90 Hepatic failure, unspecified without coma; K74.60 Unspecified cirrhosis of liver; K92.2 Gastrointestinal hemorrhage, unspecified | CPT/HCPCS: 99239 ==

== ENCOUNTER → 2024-06-09 02:17 | Outpatient (BNV) | payer MEDICAID, SELFPAY | PROVIDERS: Admitting Provider Student in an Organized Health Care Education/Training Program; Emergency Provider Emergency Medicine; Visit Provider Surgery | DX: T88.4XXA Failed or difficult intubation, initial encounter (principal) | CPT/HCPCS: 31603 ==

== ENCOUNTER → 2024-06-09 02:17 | Outpatient (BNV) | payer MEDICAID, SELFPAY | PROVIDERS: Admitting Provider Student in an Organized Health Care Education/Training Program; Emergency Provider Emergency Medicine; Visit Provider Internal Medicine | DX: K72.90 Hepatic failure, unspecified without coma (principal); K74.60 Unspecified cirrhosis of liver; K92.0 Hematemesis; F10.90 Alcohol use, unspecified, uncomplicated; K70.31 Alcoholic cirrhosis of liver with ascites; D62 Acute posthemorrhagic anemia; I85.00 Esophageal varices without bleeding | CPT/HCPCS: 99223; 99499 ==

== ENCOUNTER → 2024-06-09 02:17 | Outpatient (BNV) | payer MEDICAID, SELFPAY | PROVIDERS: Admitting Provider Student in an Organized Health Care Education/Training Program; Emergency Provider Emergency Medicine; Visit Provider Physician Assistant | DX: K92.2 Gastrointestinal hemorrhage, unspecified (principal); D62 Acute posthemorrhagic anemia; K74.60 Unspecified cirrhosis of liver; K70.31 Alcoholic cirrhosis of liver with ascites; F10.10 Alcohol abuse, uncomplicated | CPT/HCPCS: 99223; 99499 ==